=== PATIENT | female | born 1985 | race African-American/Black ===

== ENCOUNTER 2018-01-06 20:33 | Emergency (ER) | payer SELFPAY ==
[~2018-01-06] VITALS: Ht 152.4 cm; Wt 83.9 kg
[~2018-01-06 20:33] MED LIST: ACET1TAB43 PO; ACHYD1T PO; CEPH500C PO; DEPOPROVERA IM; DOCU100C37 PO; FERR325T18 PO; IBP800T PO; IBUP-1773 PO; NITR-65 PO; PREN1TAB71 PO
--- OUTSIDE RECORDS SUMMARY | 2018-01-06 20:39 | XMS REPORT ---
Author BENEDICT Virk [facility] eClinicalWorks Address Unknown Phone Unavailable Care Team Providers Care Button Reclaimer Name Role Phone BENEDICT GU CP Unavailable Allergies, Adverse Reactions, Alerts Substance Reaction Event Type N.K.D.A. Info Not Available Non Drug Allergy Problems Problem Type Condition Code Onset Dates Condition Status Problem Depressive disorder, not elsewhere classified F32.9 Active Medications Medication Code System Code Instructions Start Date End Date Status Dosage [facility] [address] 28-0.8 MG Orally not defined Results No Known Results Summary Purpose eClinicalWorks Submission
--- OUTSIDE RECORDS SUMMARY | 2018-01-06 20:40 | XMS REPORT ---
Author Author MARSHA CHILEL [facility] Address [address] [place] [address] Care Team Providers Care Grinder Gear Name Role Phone MARSHA CHILEL Unavailable PROBLEMS Type Condition ICD9-CM Code [id number] Code Onset Dates Condition Status SNOMED Code Problem Depressive disorder, not elsewhere classified F32.9 Active 66000742 ALLERGIES Unknown Allergies SOCIAL HISTORY No smoking Hx information available PLAN OF CARE VITAL SIGNS MEDICATIONS Medication Instructions Dosage Frequency Start Date End Date Duration Status Lortab 5-325 MG Orally every 6 hrs 1 tablet as needed 6h 30 Jul, 2016 Active RESULTS No Results PROCEDURES No Known procedures IMMUNIZATIONS No Known Immunizations
--- OUTSIDE RECORDS SUMMARY | 2018-01-06 20:40 | XMS REPORT ---
Author Author MARSHA CHILEL [facility] eClinicalWorks Address Unknown Phone Unavailable Care Team Providers Care Yarding Supervisor Name Role Phone MARSHA CHILEL CP Unavailable Allergies, Adverse Reactions, Alerts Substance Reaction Event Type N.K.D.A. Info Not Available Non Drug Allergy Problems Problem Type Condition Code Onset Dates Condition Status Assessment Third trimester at less than 36 weeks Z33.1 Active Problem Depressive disorder, not elsewhere classified F32.9 Active Medications Medication Code System Code Instructions Start Date End Date Status Dosage [facility] [address] 28-0.8 MG Orally Once a day 1 tablet Procedures Procedure Coding System Code Date [facility] CPT-4 NOBLL Aug 14, 2016 Office Visit, Est Pt., Level 3 CPT-4 96549 Aug 14, 2016 URINE-NO MICRO CPT-4 42077 Aug 14, 2016 Vital Signs Date/Time: Aug 14, 2016 Cardiac Monitoring Heart Rate 80 bpm Weight 166 lbs Height 60 in BMI 32.42 Index Blood Pressure Diastolic 64 mmHg Blood Pressure Systolic 110 mmHg Results Name Result Date Reference Range Unit Abnormality Flag CULTURE, GROUP B STREP (VAGINAL) ----Strep Gp B Culture Positive [id number] Negative A Summary Purpose eClinicalWorks Submission
--- OUTSIDE RECORDS SUMMARY | 2018-01-06 20:40 | XMS REPORT ---
Author Author MARSHA CHILEL [facility] eClinicalWorks Address Unknown Phone Unavailable Care Team Providers Care Industrial Economist Name Role Phone MARSHA CHILEL CP Unavailable Allergies, Adverse Reactions, Alerts Substance Reaction Event Type N.K.D.A. Info Not Available Non Drug Allergy Problems Problem Type Condition Code Onset Dates Condition Status Assessment Normal in multigravida Z34.80 Active Problem Depressive disorder, not elsewhere classified F32.9 Active Medications Medication Code System Code Instructions Start Date End Date Status Dosage [facility] [address]15 28-0.8 MG Orally not defined Vol-Plus [facility] [address]-44 27-1 MG Orally once a day May 01, 2016 1 tablet Procedures Procedure Coding System Code Date DRUG SCREEN NON TLC DEVICES CPT-4 31307 May 01, 2016 Office Visit, Est Pt., Level 4 CPT-4 42913 May 01, 2016 LAB NOT BILLED BY [facility] CPT-4 NOBLL May 01, 2016 VENIPUNCT, ROUTINE* CPT-4 66237 May 01, 2016 NIRMAL VAG, DNA, DIR PROBE CPT-4 82032 May 01, 2016 URINALYSIS, AUTO, W/O SCOPE CPT-4 73871 May 01, 2016 Vital Signs Date/Time: May 01, 2016 Cardiac Monitoring Heart Rate 76 bpm Weight 158.0 lbs Height 60 in BMI 30.857 Index Blood Pressure Diastolic 76 mmHg Blood Pressure Systolic 126 mmHg Results No Known Results Summary Purpose eClinicalWorks Submission
--- OUTSIDE RECORDS SUMMARY | 2018-01-06 20:40 | XMS REPORT ---
Author Author MARSHA CHILEL [facility] eClinicalWorks Address Unknown Phone Unavailable Care Team Providers Care Crew Boat Operator Name Role Phone MARSHA CHILEL Unavailable Allergies No Known Allergies Problems Problem Type Condition Code Onset Dates Condition Status Problem Depressive disorder, not elsewhere classified F32.9 Active Medications No Known Medications Results No Known Results Summary Purpose eClinicalWorks Submission
--- OUTSIDE RECORDS SUMMARY | 2018-01-06 20:40 | XMS REPORT ---
Author Author MARSHA CHILEL [facility] Address [address] [place] [address] Care Team Providers Care Mine Equipment Design Engineer Name Role Phone MARSHA CHILEL Unavailable PROBLEMS Type Condition ICD9-CM Code [id number] Code Onset Dates Condition Status SNOMED Code Problem Depressive disorder, not elsewhere classified F32.9 Active [id number] Assessment Third trimester Z33.1 Jul, Active [id number] ALLERGIES Unknown Allergies SOCIAL HISTORY No smoking Hx information available PLAN OF CARE VITAL SIGNS Height 60 in 2016-08-21 Weight 174 lbs 2016-08-21 Heart Rate 80 bpm 2016-08-21 Respiratory Rate 18 2016-08-21 BMI 33.982 kg/m2 2016-08-21 Blood pressure systolic 110 mmHg 2016-08-21 Blood pressure diastolic 80 mmHg 2016-08-21 MEDICATIONS Unknown Medications RESULTS No Results PROCEDURES Procedure Date Ordered Related Diagnosis Body Site URINE-NO MICRO Aug 21, 2016 Office Visit, Est Pt., Level 3 Aug 21, 2016 IMMUNIZATIONS No Known Immunizations
--- OUTSIDE RECORDS SUMMARY | 2018-01-06 20:40 | XMS REPORT ---
Author BENEDICT Virk [facility] eClinicalWorks Address Unknown Phone Unavailable Care Team Providers Care Leaf Tinner Name Role Phone BENEDICT GU CP Unavailable Allergies No Known Allergies Problems Problem Type Condition Code Onset Dates Condition Status Assessment test positive Z32.01 Active Problem Depressive disorder, not elsewhere classified F32.9 Active Medications No Known Medications Procedures Procedure Coding System Code Date URINE TEST CPT-4 62114 April 08, 2016 Results No Known Results Summary Purpose eClinicalWorks Submission
--- OUTSIDE RECORDS SUMMARY | 2018-01-06 20:40 | XMS REPORT ---
Author Author MARSHA CHILEL [facility] eClinicalWorks Address Unknown Phone Unavailable Care Team Providers Care Ekg Tech Name Role Phone MARSHA CHILEL CP Unavailable Allergies, Adverse Reactions, Alerts Substance Reaction Event Type N.K.D.A. Info Not Available Non Drug Allergy Problems Problem Type Condition Code Onset Dates Condition Status Assessment 30 weeks gestation of Z3A.30 Active Assessment Encounter for immunization Z23 Active Problem Depressive disorder, not elsewhere classified F32.9 Active Assessment Abnormal glucose tolerance test (GTT) R73.02 Active Medications Medication Code System Code Instructions Start Date End Date Status Dosage [facility] [address]32 28-0.8 MG Orally not defined Procedures Procedure Coding System Code Date Office Visit, Est Pt., Level 3 CPT-4 82187 Jul 10, 2016 [facility] NOBLL Jul 10, 2016 URINE-NO MICRO CPT-4 23275 Jul 10, 2016 TDAP (BOOSTRIX) CPT-4 12849 Jul 10, 2016 FLUARIX QUAD P-FREE 3 AND UP .50 2015 CPT-4 52524 Jul 10, 2016 IMMUNIZATION ADMIN, EACH ADD (please include units) CPT-4 42444 Jul 10, 2016 SINGLE IMMUNIZATION ADMIN CPT-4 29573 Jul 10, 2016 Vital Signs Date/Time: Jul 10, 2016 Cardiac Monitoring Heart Rate 72 bpm Weight 168.8 lbs Height 60 in BMI 32.966 Index Blood Pressure Diastolic 76 mmHg Blood Pressure Systolic 120 mmHg Results Name Result Date Reference Range Unit Abnormality Flag UA OB DIP (IN HOUSE) ----Glucose Negative [id number] ----Protein trace 20160710 Immunizations Vaccine Administration Date FLUARIX QUAD P-FREE 3 AND UP .50 2015Jul 10, 2016 TDAP (BOOSTRIX) Jul 10, 2016 Summary Purpose eClinicalWorks Submission
--- OUTSIDE RECORDS SUMMARY | 2018-01-06 20:40 | XMS REPORT ---
Author Author MARSHA CHILEL [facility] eClinicalWorks Address Unknown Phone Unavailable Care Team Providers Care Metal Organ Pipe Maker Name Role Phone MARSHA CHILEL CP Unavailable Allergies, Adverse Reactions, Alerts Substance Reaction Event Type N.K.D.A. Info Not Available Non Drug Allergy Problems Problem Type Condition Code Onset Dates Condition Status Assessment Third trimester at less than 36 weeks Z33.1 Active Problem Depressive disorder, not elsewhere classified F32.9 Active Medications Medication Code System Code Instructions Start Date End Date Status Dosage [facility] [address]77 28-0.8 MG Orally not defined Procedures Procedure Coding System Code Date Office Visit, Est Pt., Level 3 CPT-4 80045 Jul 24, 2016 URINE-NO MICRO CPT-4 12484 Jul 24, 2016 Vital Signs Date/Time: Jul 24, 2016 Cardiac Monitoring Heart Rate 80 bpm Weight 169 lbs Height 60 in BMI 33.006 Index Blood Pressure Diastolic 62 mmHg Blood Pressure Systolic 112 mmHg Results Name Result Date Reference Range Unit Abnormality Flag UA OB DIP (IN HOUSE) ----Glucose Negative [id number] ----Protein Negative [id number] Summary Purpose eClinicalWorks Submission
--- OUTSIDE RECORDS SUMMARY | 2018-01-06 20:41 | XMS REPORT ---
Author JEOVANY Torres Organization eClinicalWorks Address Unknown Phone Unavailable Care Team Providers Care Quality Lab Technician Name Role Phone JEOVANY GARRETT CP Unavailable Allergies No Known Allergies Problems Problem Type Condition Code Onset Dates Condition Status Problem Supervision of other normal V22.1 Active Assessment Depressive disorder, not elsewhere classified F32.9 Active Problem Depressive disorder, not elsewhere classified F32.9 Active Medications No Known Medications Procedures Procedure Coding System Code Date Psych diagnostic evaluation, established patient CPT-4 84987 Oct 25, 2015 Results No Known Results Summary Purpose eClinicalWorks Submission
--- OUTSIDE RECORDS SUMMARY | 2018-01-06 20:41 | XMS REPORT ---
Author Author MARSHA CHILEL [facility] eClinicalWorks Address Unknown Phone Unavailable Care Team Providers Care Social Sciences Department Chair Name Role Phone MARSHA CHILEL Unavailable Allergies No Known Allergies Problems Problem Type Condition Code Onset Dates Condition Status Assessment Third trimester at less than 36 weeks Z33.1 Active Assessment Rh negative status during , third trimester O09.893 Active Problem Depressive disorder, not elsewhere classified F32.9 Active Medications Medication Code System Code Instructions Start Date End Date Status Dosage [facility] [address]18 28-0.8 MG Orally not defined Procedures Procedure Coding System Code Date Office Visit, Est Pt., Level 3 CPT-4 68018 Jun 26, 2016 LAB NOT BILLED BY [facility] CPT-4 NOBLL Jun 26, 2016 URINE-NO MICRO CPT-4 52076 Jun 26, 2016 RH IG, FULL-DOSE, IM CPT-4 45979 Jun 26, 2016 VENIPUNCT, ROUTINE* CPT-4 30967 Jun 26, 2016 THER/PROPH/DIAG INJ, SC/IM CPT-4 62438 Jun 26, 2016 Vital Signs Date/Time: Jun 26, 2016 Cardiac Monitoring Heart Rate 76 bpm Weight 165.5 lbs Height 60 in BMI 32.322 Index Blood Pressure Diastolic 78 mmHg Blood Pressure Systolic 124 mmHg Results Name Result Date Reference Range Unit Abnormality Flag CBC ----Lymphs 21 [id number] % ----Neutrophils 71 20160626 % ----Baso (Absolute) 0.0 20160626 0.0-0.2 x10E3/uL ----Hemoglobin 12.3 20160626 11.1-15.9 g/dL ----Eos (Absolute) 0.1 [id number] 0.0-0.4 x10E3/uL ----Hematocrit 36.0 20160626 34.0-46.6 % ----Monocytes(Absolute) 0.4 20160626 0.1-0.9 x10E3/uL ----MCV 89 20160626 79-97 fL ----Lymphs (Absolute) 1.5 [id number] 0.7-3.1 x10E3/uL ----MCH 30.4 31892198 26.6-33.0 pg ----Neutrophils (Absolute) 5.3 [id number] 1.4-7.0 x10E3/uL ----MCHC 34.2 84778392 31.5-35.7 g/dL ----Immature Granulocytes 0 20160626 % ----Basos 0 23690913 % ----RDW 13.4 [id number] 12.3-15.4 % ----Immature Grans (Abs) 0.0 [id number] 0.0-0.1 x10E3/uL ----WBC 7.4 95079285 3.4-10.8 x10E3/uL ----Platelets 150 [id number] 150-379 x10E3/uL ----Eos 2 20160626 % ----RBC 4.04 40175469 3.77-5.28 x10E6/uL ----Monocytes 6 13016581 % ANTIBODY SCREEN ----Antibody Screen Negative 20160626 Negative ROUTINE VENIPUNCTURE GLUCOSE DEDE 1 HOUR ----Gestational Diabetes Screen 149 20160626 65-139 mg/dL H UA OB DIP (IN HOUSE) ----Protein Negative 20160626 ----Glucose Negative 20160626 Summary Purpose eClinicalWorks Submission
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
--- NOTE | 2018-01-06 20:55 | ED Cough/URI ---
General Chief Complaint: Cough/Cold/Flu Symptoms Stated Complaint: FEVER;CHILLS Nursing Triage Note: Patient reports runny nose with chills and generalized aches and pain since Source: patient Exam Limitations: no limitations History of Present Illness Date Seen by Provider: Jan 06, 2018 Time Seen by Provider: 20:54 Initial Comments To ER with reports of a four-day history of rhinorrhea, chills, general body aches, productive cough. She has not taken any medication at home because she does not like taking medication. Timing/Duration: constant Severity/Quality: productive cough Associated Symptoms: cough Allergies and Home Medications Allergies Coded Allergies: No Known Drug Allergies (Verified , 12/23/07) Home Medications D-Methorphan Hb/P-Epd HCl/Bpm 118 Ml Syrup, 5 ML PO Q4H PRN for COUGH Prescribed by: SHIRIN PORTER on 01/06/182140 Patient Home Medication List Home Medication List Reviewed: Yes Review of Systems Constitutional: see HPI, chills, malaise, weakness EENTM: see HPI Respiratory: see HPI, cough Cardiovascular: no symptoms reported Genitourinary: no symptoms reported Musculoskeletal: no symptoms reported Skin: no symptoms reported Past Omivikh-Isvnjs-Qbrqbi Hx Patient Social History Alcohol Use: Denies Use Recreational Drug Use: No Smoking Status: Current Everyday Smoker Type Used: Cigarettes Recent Foreign Travel: No Contact w/Someone Who Travel: No Recent Infectious Disease Expo: No Recent Hopitalizations: No Physical Abuse: No Sexual Abuse: No Immunizations Up To Date Tetanus Booster (TDap): Unknown PED Vaccines UTD: No Date of Influenza Vaccine: Jul 10, 2016 Seasonal Allergies Seasonal Allergies: No Past Medical History Surgeries: Yes (D&C) Respiratory: No Cardiac: No Neurological: No Reproductive Disorders: No Female Reproductive Disorders: Denies Sexually Transmitted Disease: No HIV/AIDS: No Gastrointestinal: No Musculoskeletal: No Endocrine: No Cancer: No Psychosocial: No Nursing Suicide Risk Score: 0 Integumentary: Yes Eczema Blood Disorders: No Adverse Reaction/Blood Tranf: No Family Medical History Diabetes mellitus 19 MOTHER (will not take medicine) FH: of unknown cause 19 FATHER, Onset:22 FH: stomach ulcer G8 BROTHER Physical Exam Vital Signs Vital Signs - First Documented 01/06/18 20:42 Temp 99.4 Pulse 88 Resp 18 B/P (MAP) 139/92 (108) Pulse Ox 99 Capillary Refill : Less Than 3 Seconds General Appearance: WD/WN, no apparent distress Eyes: Bilateral Eye Normal Inspection, Bilateral Eye PERRL, Bilateral Eye EOMI HEENT: PERRL/EOMI, normal ENT inspection, other (rhinorrhea) Neck: non-tender, full range of motion Respiratory: normal breath sounds, no respiratory distress, no accessory muscle use Gastrointestinal: normal bowel sounds, non tender, soft Neurologic/Psychiatric: alert, normal mood/affect, oriented x 3 Skin: normal color, warm/dry Progress/Results/Core Measures Suspected Sepsis Recent Fever Within 48 Hours: No Infection Criteria Present: None New/Unexplained Altered Menta: No Sepsis Screen: No Definite Risk Sepsis Diagnosis: SIRS Temperature:99.4 Pulse: 88 Respiratory Rate: 18 Blood Pressure 139 /92 Mean: 108 Results/Orders Micro Results Microbiology 01/06/18 Influenza Types A,B Antigen (EMMA) - Final, Complete My Orders Orders - SHIRIN PORTER APRN Influenza A And B Antigens (01/06/18 20:50) Chest Pa/Lat (2 View) (01/06/18 20:50) Vital Signs/I&O 01/06/18 20:42 Temp 99.4 Pulse 88 Resp 18 B/P (MAP) 139/92 (108) Pulse Ox 99 Capillary Refill : Less Than 3 Seconds Blood Pressure Mean: 108 Departure Impression Primary Impression: Bronchitis Disposition: 01 HOME, SELF-CARE Condition: Stable Departure-Patient Inst. Decision time for Depature: 21:40 Referrals: RACHAEL RUIZ DO (PCP/Family) Primary Care Physician Patient Instructions: Cough, Adult (DC), VIRAL SYNDROME Add. Discharge Instructions: 1. Return to ER for any concerns 2. Medication as directed 3. All discharge instructions reviewed with patient and/or family. Voiced understanding. Scripts D-Methorphan Hb/P-Epd HCl/Bpm (Bromfed Dm Cough Syrup) 118 Ml Syrup 5 ML PO Q4H Y for COUGH, #120 ML Prov: SHIRIN PORTER APRN 01/06/18 Work/School Note: Work Release Form Date Seen in the Emergency Department: Jan 06, 2018 Return to Work: Jan 08, 2018 SHIRIN PORTER APRN Jan 06, 2018 20:55
--- NOTE | 2018-01-06 21:25 | Diagnostic Imaging Report ---
EXAMINATION: PA and lateral chest at 0926 PM INDICATION: Productive cough The heart size is within normal limits and stable when compared to 03/23/2008. The lungs are clear. There is no sign of failure, pneumonia or a pleural effusion. The mediastinum is not widened. The osseous structures are intact. IMPRESSION: There is no evidence for an acute cardiopulmonary abnormality. Dictated by: Dictated on workstation # [id number]
[2018-01-06] MEDS ORDERED: D-ME118S33 PO (21:41)
[2018-01-06 21:47] VITALS: BP 139/92
== END 2018-01-06 21:47 | disposition home or self-care (01) ==
LOC: EDUNIT# 20:33 → ER 20:35
DX: J40 Bronchitis, not specified as acute or chronic (principal); F17.210 Nicotine dependence, cigarettes, uncomplicated; Z87.19 Personal history of other diseases of the digestive system
CPT/HCPCS: 71046; 87804; 99282

== ENCOUNTER 2019-01-07 22:13 | Emergency (ER) | payer SELFPAY ==
[~2019-01-07] VITALS: Ht 152.4 cm; Wt 81.2 kg
[~2019-01-07 22:13] MED LIST changes: +D-ME118S33 PO
--- OUTSIDE RECORDS SUMMARY | 2019-01-07 22:19 | XMS REPORT ---
Author Author JAMEE Stubbs [facility] Address [address] [place] [address] Care Team Providers Care Linen Sorter Name Role Phone ireneDoCAROLYNE JAMEE Unavailable PROBLEMS Type Condition ICD9-CM Code SDB99-TI Code Onset Dates Condition Status SNOMED Code Problem Severe episode of recurrent major depressive disorder, without psychotic features F33.2 Active 14118193 Problem Depressive disorder, not elsewhere classified F32.9 Active [id number] ALLERGIES No Known Allergies ENCOUNTERS Encounter Location Date Diagnosis [place] [id number] [address] Feb, [place] [address] [address] January, [facility] [address] [address] January, [facility] [address] [address] January, Severe episode of recurrent major depressive disorder, without psychotic features F33.2 [place] [address] [address] January, [facility] [address] [place] [id number] [place] [address] Jun, Non-intractable vomiting with nausea, unspecified vomiting type R11.2 and Viral gastroenteritis A08.4 [facility] [address] [address] Dec, [facility] [address] [place] [id number] [place] [address] Dec, Generalized abdominal pain R10.84 and Acute cystitis with hematuria N30.01 [facility] [address] [address] Sep, [facility] [address] [place] [id number] [place] [address] Aug, Normal in multigravida Z34.80 [facility] [address] [place] [id number] [place] [address]- [address] Jul, [facility] [address] [place] [id number] [place] [address]- 5652 Jul, Third trimester Z33.1 [place] [address] [place] [id number] [place] [address]- 7634 Jul, Third trimester at less than 36 weeks Z33.1 [place] [address] [place] [id number] [place] [address]- 1705 Jun, Third trimester at less than 36 weeks Z33.1 [place] [address] [place] [id number] [place] [address]- [address] Jun, [place] [address] [place] [id number] [place] [address]- 6[address] Jun, 30 weeks gestation of Z3A.30 ; Encounter for immunization Z23 and Abnormal glucose tolerance test (GTT) R73.02 [place] [id number] [place] [address]- 8689 May, Third trimester at less than 36 weeks Z33.1 and Rh negative status during , third trimester O09.893 [place] [address] [address] May, 25 weeks gestation of Z3A.25 [place] [address] [place] [id number] [place] [address]- [address] May, [facility] [address] [address] Apr, Normal in multigravida Z34.80 [facility] [address] [address] Mar, [facility] [address] [place] [id number] [place] [address]- 1798 Mar, test positive Z32.01 [facility] [address] [address] Nov, Urinary frequency R35.0 ; Oral contraceptive pill surveillance Z30.41 ; Routine screening for STI (sexually transmitted infection ) Z11.3 ; Irregular menses N92.6 ; Urinary tract infection, site not specified N39.0 and Screening for malignant neoplasm of cervix Z12.4 [place] [address] [place] [id number] [place] [address]- 99[address] Sep, Depressive disorder, not elsewhere classified F32.9 [facility] [address] [place] [address]- 89[address] Apr, [facility] [address] [place] [address]- 9[address] Apr, Supervision of other normal V22.1 and test positive V72.42 [place] [address] [place] [address]26- 8119 Apr, Supervision of other normal V22.1 [facility] [address] [address] Mar, [facility] [address] [place] [id number] [place] [address]- [address] January, test positive V72.42 [facility] [address] [address] Dec, [facility] [address] [address] Dec, [facility] [address] [address] Jul, [facility] [place] [facility] [address] [id number] [place] [address] Jul, [facility] [place] [facility] [address] [id number] [place] [address] 8525 Jul, [facility] [place] [facility] [address] [id number] [place] [address]- 8596 Jul, [facility] [place] [facility] [address] [id number] [place] [address]- 9889 Jul, [facility] [place] [facility] [address] [id number] [place] [address]- [address] Jul, [facility] [place] [facility] [address] [id number] [place] [address]- 99[address] Jul, [facility] [place] [facility] [address] [id number] [place] [address]- [address] Jul, [facility] [place] [facility] [address] [id number] [place] [address] 4309 Jul, [facility] [place] [facility] [address] [id number] [place] [address]- 2780 Jul, [facility] [place] [facility] [address] [id number] [place] [address]- 3604 Apr, [facility] [place] [facility] [address] [id number] [place] [address]- 3009 Apr, [facility] [place] [facility] [address] [id number] [place] [address]- 7379 Jul, [facility] [place] [facility] [address] [id number] [place] [address]- 3107 Jul, [facility] [place] [facility] [address] [id number] [place] [address]- 7268 Jul, [facility] [place] [facility] [address] [id number] [place] [address]- 9696 Jul, [facility] [place] [facility] [address] [id number] [address] Jul, [facility] [address] [facility] [id number] [address] Jul, [facility] [address] [facility] [id number] [place] [address] Jul, [facility] [address] [address] Jul, [facility] [address] [facility] [id number] [place] [address]- [address] Jul, [facility] [address] [facility] [id number] [place] [address] Jul, [facility] [address] [place] [id number] [address] Jun, [facility] [address] [address] Jun, [facility] [address] [address] Jun, [facility] [address] [address] Jun, [facility] [address] Aug, [facility] [address] [place] [id number] [address] Aug, [facility] [address] [place] [id number] Aug, [facility] [address] [place] [id number] Apr, IMMUNIZATIONS No Known Immunizations SOCIAL HISTORY Never Assessed REASON FOR VISIT nausea x 2 days, stomach cramps and temp as high as 100.0, pt is sticking to full liquid diet [facility] PLAN OF CARE Activity Details Follow Up prn Reason: VITAL SIGNS Height 60 in 2017-07-17 Weight 171 lbs 2017-07-17 Temperature 98.0 degrees Fahrenheit 2017-07-17 Heart Rate 84 bpm 2017-07-17 Respiratory Rate 16 2017-07-17 BMI 33.39 kg/m2 2017-07-17 Blood pressure systolic 122 mmHg 2017-07-17 Blood pressure diastolic 62 mmHg 2017-07-17 MEDICATIONS Medication Instructions Dosage Frequency Start Date End Date Duration Status Tylenol Active Zofran ODT 4 MG Orally every 8 hrs 1 tablet on the tongue and allow to dissolve 8h Jun, 05 days Active RESULTS Name Result Date Reference Range TEST, URINE (IN HOUSE) 2017-07-17 RESULTS negative Lot # [id number] Control + Exp date 2018 UA W/CULTURE IF INDICATED (IN HOUSE) 2017-07-17 Lot # [id number] Exp date 07 29 2018 Clarity clear Color ornge Odor none GLU negative JENNIFER negative KET negative SG 1.025 BLO trace pH 5.5 Protein negative URO 0.2 NIT negative ANIBAL 1+ Lot # [id number] Exp date december 2017 PROCEDURES Procedure Date Ordered Result Body Site URINALYSIS, AUTO, W/O SCOPE Jul 17, 2017 URINE TEST Jul 17, 2017 INSTRUCTIONS MEDICATIONS ADMINISTERED No Known Medications MEDICAL (GENERAL) HISTORY Type Description Date Medical History History of Rhogam Injection Surgical History D&C 2010 Hospitalization History Childbirth x 5
--- OUTSIDE RECORDS SUMMARY | 2019-01-07 22:19 | XMS REPORT ---
Author Author Migration, Doctor Organization [facility] Address Unknown Phone Unavailable Care Team Providers Care Modeling Manager Name Role Phone Migration, Doctor Unavailable Unavailable PROBLEMS Type Condition ICD9-CM Code FDI88-CR Code Onset Dates Condition Status SNOMED Code Problem Depressive disorder, not elsewhere classified F32.9 Active 54964701 Problem Severe episode of recurrent major depressive disorder, without psychotic features F33.2 Active 93808130 ALLERGIES No Information ENCOUNTERS Encounter Location Date Diagnosis [address] [address] January, Severe episode of recurrent major depressive disorder, without psychotic features F33.[address] [address] January, [facility] [place] [address] [address] Jun, Non-intractable vomiting with nausea, unspecified vomiting type R11.2 and Viral gastroenteritis A08.4 [place] [address] [address] Dec, [facility] [place] [address] [address] Dec, Generalized abdominal pain R10.84 and Acute cystitis with hematuria N30.01 [place] [address] [address] Sep, [address] [address] Aug, Normal in multigravida Z34.80 [place] [address] [address] Jul, [address] [address] Jul, Third trimester Z33.1 [place] [address] [place] [address] Jul, Third trimester at less than 36 weeks Z33.1 [place] [address] [address] Jun, Third trimester at less than 36 weeks Z33.1 [place] [address] [place] [id number] [place] [address] Jun, [place] [address] [place] [id number] [place] [address] Jun, 30 weeks gestation of Z3A.30 ; Encounter for immunization Z23 and Abnormal glucose tolerance test (GTT) R73.02 [place] [address] [place] [address]- [address]1 May, Third trimester at less than 36 weeks Z33.1 and Rh negative status during , third trimester O09.893 [place] [address] [place] [address]- [address] May, 25 weeks gestation of Z3A.25 [place] [address] [place] [address]- [address] May, [place] [address] [address]- [address] Apr, Normal in multigravida Z34.80 [place] [address], [place] [address]- [address] Mar, [place] [address] [place] [id number] [place] [address] Mar, test positive Z32.01 [place] [address], [place] [address]- [address] Nov, Urinary frequency R35.0 ; Oral contraceptive pill surveillance Z30.41 ; Routine screening for STI (sexually transmitted infection ) Z11.3 ; Irregular menses N92.6 ; Urinary tract infection, site not specified N39.0 and Screening for malignant neoplasm of cervix Z12.4 [facility] [address] [place] [id number] [place] [address]- [address] Sep, Depressive disorder, not elsewhere classified F32.9 [facility] [address] [place] [id number] [place] [address]- 1155 Apr, [facility] [address] [place] [id number] [place] [address]66- 5278 Apr, Supervision of other normal V22.1 and test positive V72.42 [facility] [address] [place] [id number] [place] [address]- 3350 Apr, Supervision of other normal V22.1 [facility] [address] [place] [id number] [place] [address]- 8510 Mar, [facility] [address] [place] [id number] [place] [address]- 6258 January, test positive V72.42 [facility] [address] [place] [id number] [place] [address] 84[address]- 3704 Dec, [facility] [address] [place] [id number] [address]- [address] Dec, [facility] [address], [place] [address]- 6[address] Jul, [facility] [address], [place] [address]- 2068 Jul, [facility] [address] [place] [id number] [place] [address]- 3874 Jul, [facility] [address] [place] [id number] [address]- [address] Jul, [facility] [address], [place] [address]- 284[address] Jul, [facility] [place] [facility] [address] [id number] [place] [address]- 8668 Jul, [facility] [place] [facility] [address] [id number] [place] [address]- 5609 Jul, [facility] [place] [facility] [address] [id number] [place] [address]- 0369 Jul, [facility] [place] [facility] [address] [id number] [place] [address]- 7594 Jul, [facility] [place] [facility] [address] [id number] [place] [address]- 6777 Jul, [facility] [place] [facility] [address] [id number] [place] [address]- 3233 Apr, [facility] [place] [facility] [address] [id number] [place] [address]- 7520 Apr, [facility] [place] [facility] [address] [id number] [place] [address]- 1169 Jul, [facility] [place] [facility] [address] [id number] [place] [address]- 0852 Jul, [facility] [place] [facility] [address] [id number] [place] [address]- 1981 Jul, [facility] [place] [facility] [address] [id number] [place] [address]- 9879 Jul, [facility] [place] [facility] [address] [id number] [place] [address]- 0594 Jul, [facility] [place] [facility] [address] [id number] [place] [address]- 2026 Jul, [facility] [place] [facility] [address] [id number] [place] [address]- 3868 Jul, [facility] [place] [facility] [address] [id number] [place] [address]- 8914 Jul, [facility] [place] [facility] [address] [id number] [place] [address]- 4748 Jul, [facility] [address] [place] [id number] [address]- [address] Jul, [facility] [address], [place] [address]- 6426 Jun, [facility] [address], [place] [address]- 8[address] Jun, [facility] [address], [place] [address]- 4709 Jun, [facility] [address], [place] [address]- 9762 Jun, [facility] [address] [place] [address] 6[address]- 1178 Aug, [facility] [address], [place] [address]- 0853 Aug, [facility] [address], [place] [address]- 12[address] Aug, [facility] [address] [place] [id number] [address]- 3[address] Apr, IMMUNIZATIONS No Known Immunizations SOCIAL HISTORY Never Assessed REASON FOR VISIT EMR-[facility] PLAN OF CARE VITAL SIGNS MEDICATIONS Medication Instructions Dosage Frequency Start Date End Date Duration Status Ortho-Cyclen (28) 0.25-35 mg-mcg take 1 tablet by oral route once daily Jul, Active Flagyl 500 mg 1 tablet by Oral route 2 times per day for 7 days Jul Active RESULTS No Results PROCEDURES No Known procedures INSTRUCTIONS MEDICATIONS ADMINISTERED No Known Medications MEDICAL (GENERAL) HISTORY Type Description Date Medical History History of Rhogam Injection Surgical History D&C 2010 Hospitalization History Childbirth x 5
--- OUTSIDE RECORDS SUMMARY | 2019-01-07 22:19 | XMS REPORT ---
Author Author JEOVANY GARRETT Organization [facility] Address [address] [place] [address] Care Team Providers Care Tub Chucker Name Role Phone JEOVANY GARRETT Unavailable PROBLEMS Type Condition ICD9-CM Code TIG30-BD Code Onset Dates Condition Status SNOMED Code Problem Severe episode of recurrent major depressive disorder, without psychotic features F33.2 Active 51079091 Problem Depressive disorder, not elsewhere classified F32.9 Active [id number] ALLERGIES No Information ENCOUNTERS Encounter Location Date Diagnosis [address] [address] January, Severe episode of recurrent major depressive disorder, without psychotic features F33.[address] [address] January, [facility] IN [address] [address] Jun, Non-intractable vomiting with nausea, unspecified vomiting type R11.2 and Viral gastroenteritis A08.[address] [address] Dec, [facility]ALK IN [facility] [address] [address] Dec, Generalized abdominal pain R10.84 and Acute cystitis with hematuria N30.[address] [address] Sep, [address] [address] Aug, Normal in multigravida Z34.[address] [address] Jul, [facility] [id number] [place] [address]32- 5632 Jul, Third trimester Z33.1 [facility] [address] [address] [id number] [place] [address] 94934- 7642 Jul, Third trimester at less than 36 weeks Z33.1 [facility] [id number] [place] [address] 04852- 5517 Jun, Third trimester at less than 36 weeks Z33.1 [facility] [id number] [place] [address] 98315- 6958 Jun, [place] [address] [address] Jun, Encounter for immunization Z23 ; 30 weeks gestation of Z3A.30 and Abnormal glucose tolerance test (GTT) R73.02 [place] [id number] [place] [address] 60086- 9841 May, Third trimester at less than 36 weeks Z33.1 and Rh negative status during , third trimester O09.893 [place] [id number] [place] [address] 02737- 5822 May, 25 weeks gestation of Z3A.25 [place] [address] [address] [id number] [place] [address] 42505- 6758 May, [place] [address] [id number] [place] [address] 56244- 5826 Apr, Normal in multigravida Z34.80 [place] [address] [id number] [place] [address] 47783- 0043 Mar, [place] [address] [id number] [place] [address] 63155- 6442 Mar, test positive Z32.01 [place] [address] [address] [id number] [place] [address] 98381- 8340 15 Mar, 2016 Urinary frequency R35.0 ; Oral contraceptive pill surveillance Z30.41 ; Routine screening for STI (sexually transmitted infection ) Z11.3 ; Irregular menses N92.6 ; Urinary tract infection, site not specified N39.0 and Screening for malignant neoplasm of cervix Z12.4 [facility] [address] [address] 27 Sep, 2015 Depressive disorder, not elsewhere classified F32.9 [facility] [id number] [place] [address] 56097- 3061 Apr, [facility] [id number] [place] [address] 54982- 5335 Apr, Supervision of other normal V22.1 and test positive V72.42 [facility] [id number] [address] 95[address] Apr, Supervision of other normal V22.1 [facility] [id number] [place] [address] 72004- 2976 Mar, [facility] [id number] [place] [address] 96795- 2393 January, test positive V72.42 [facility] [id number] [address] 8[address] Dec, [facility] [address] [address]- 98[address] Dec, [facility] [id number] [address]- 2515 Jul, [facility] [address] [address]- 8002 Jul, [facility] [address] [id number] [place] [address] 63254- 1652 Jul, [facility] [id number], [place] [address]- 5459 Jul, [facility] [id number] [place] [address] 8669 Jul, [facility] [place] [facility] [address] [id number] [place] [address]- 0937 Jul, [facility] [place] [facility] [address] [id number] [place] [address]- 8273 Jul, [facility] [place] [facility] [address] [id number] [place] [address]- 2761 Jul, [facility] [place] [facility] [address] [id number] [place] [address]- 0493 Jul, [facility] [place] [facility] [address] [id number] [place] [address]- 2245 Jul, [facility] [place] [facility] [address] [id number] [place] [address]- 4158 Apr, [facility] [place] [facility] [address] [id number] [place] [address]- 3047 Apr, [facility] [place] [facility] [address] [id number] [place] [address]- 4256 Jul, [facility] [place] [facility] [address] [id number] [place] [address]- 5094 Jul, [facility] [place] [facility] [address] [id number] [place] [address]- 2093 Jul, [facility] [place] [facility] [address] [id number] [place] [address]- 9390 Jul, [facility] [place] [facility] [address] [id number] [place] [address]- 8501 Jul, [facility] [place] [facility] [address] [id number] [place] [address]- 4472 Jul, [facility] [place] [facility] [address] [id number] [place] [address]- 4011 Jul, [facility] [place] [facility] [address] [id number] [place] [address]- 9767 Jul, [facility] [address] [address]- 9965 Jul, [facility] [address], [place] [address]- 0166 Jul, [facility] [address], [place] [address]- 6765 Jun, [facility] [address], [place] [address]- 2546 Jun, [facility] [id number] [address]- 1994 Jun, [facility] [address] [address]- 3156 Jun, [facility] [address] [place] [address] 80443- 6729 Aug, [facility] [id number] [address]- 6703 Aug, [facility] [address], [place] [address]- 1652 Aug, [facility] [address] [place] [id number] [address]- 2069 Apr, IMMUNIZATIONS No Known Immunizations SOCIAL HISTORY Never Assessed REASON FOR VISIT BH intake, Depression. PLAN OF CARE Activity Details Follow Up next available Reason:depression VITAL SIGNS MEDICATIONS Unknown Medications RESULTS No Results PROCEDURES Procedure Date Ordered Result Body Site Psych diagnostic evaluation, established patient February 04, 2018 INSTRUCTIONS MEDICATIONS ADMINISTERED No Known Medications MEDICAL (GENERAL) HISTORY Type Description Date Medical History History of Rhogam Injection Surgical History D&C 2010 Hospitalization History Childbirth x 5
--- OUTSIDE RECORDS SUMMARY | 2019-01-07 22:19 | XMS REPORT ---
Author Author JEOVANY GARRETT Organization [facility] Address [address] [place] [address] Care Team Providers Care Equipment Analyst Name Role Phone JEOVANY GARRETT Unavailable PROBLEMS Type Condition ICD9-CM Code ASL62-RF Code Onset Dates Condition Status SNOMED Code Problem Severe episode of recurrent major depressive disorder, without psychotic features F33.2 Active 61218846 Problem Depressive disorder, not elsewhere classified F32.9 Active 45048547 ALLERGIES No Information ENCOUNTERS Encounter Location Date Diagnosis [address] [address] January, Severe episode of recurrent major depressive disorder, without psychotic features F33.[address] [address] January, [facility] IN [address] [address] Jun, Non-intractable vomiting with nausea, unspecified vomiting type R11.2 and Viral gastroenteritis A08.[address] [address]- [address] Dec, [facility] WALK IN [facility] [address] [address] Dec, Generalized abdominal pain R10.84 and Acute cystitis with hematuria N30.[address] [address]- [address]326 Sep, [address] [address] Aug, Normal in multigravida Z34.[address] [address]- 3227 Jul, [facility] [address] [place] [address] 366[address]- 9430 Jul, Third trimester Z33.1 [facility] [address] [id number] [place] [address] 45640- 4124 Jul, Third trimester at less than 36 weeks Z33.1 [facility] [address] [id number] [place] [address] 65824- 2310 Jun, Third trimester at less than 36 weeks Z33.1 [facility] [address] [place] [id number] [place] [address] 09273- 2791 Jun, [place] [address] [id number] [place] [address] 12184- 1303 Jun, 30 weeks gestation of Z3A.30 ; Encounter for immunization Z23 and Abnormal glucose tolerance test (GTT) R73.02 [place] [address] [place] [id number] [place] [address] 84509- 1171 May, Third trimester at less than 36 weeks Z33.1 and Rh negative status during , third trimester O09.893 [place] [address] [place] [address] [id number] [place] [address] 81180- 1124 May, 25 weeks gestation of Z3A.25 [place] [address] [place] [id number] [place] [address] 46581- 3115 May, [place] [address] [place] [id number] [place] [address] 42086- 3971 Apr, Normal in multigravida Z34.80 [place] [address] [place] [address] [id number] [place] [address] 68159- 4789 Mar, [place] [address] [place] [id number] [place] [address] 41288- 0594 Mar, test positive Z32.01 [place] [address] [place] [address] [id number] [place] [address] 19529- 5484 15 Mar, 2016 Urinary frequency R35.0 ; Oral contraceptive pill surveillance Z30.41 ; Routine screening for STI (sexually transmitted infection ) Z11.3 ; Irregular menses N92.6 ; Urinary tract infection, site not specified N39.0 and Screening for malignant neoplasm of cervix Z12.4 [facility] [address], [place] [address]- 65[address] 27 Sep, 2015 Depressive disorder, not elsewhere classified F32.9 [facility] [id number] [place] [address] 45483- 0043 Apr, [facility] [id number] [place] [address] 39742- 9197 Apr, Supervision of other normal V22.1 and test positive V72.42 [facility] [id number] [address]- 4132 Apr, Supervision of other normal V22.1 [facility] [id number] [place] [address] 17635- 0450 Mar, [facility] [id number] [place] [address] 39852- 4492 January, test positive V72.42 [facility] [id number] [address]- 8389 Dec, [facility] [address], [place] [address]- 7581 Dec, [facility] [address], [place] [address]- 7797 Jul, [facility] [address], [place] [address]- 9581 Jul, [facility] [address] [place] [id number] [place] [address] 43180- 1917 Jul, [facility] [address], [place] [address]- 4056 Jul, [facility] [address] [place] [id number] [place] [address]- 6505 Jul, [facility] [place] [facility] [address] [id number] [place] [address]- 9050 Jul, [facility] [place] [facility] [address] [id number] [place] [address]- 3559 Jul, [facility] [place] [facility] [address] [id number] [place] [address]- 4076 Jul, [facility] [place] [facility] [address] [id number] [place] [address]- 0607 Jul, [facility] [place] [facility] [address] [id number] [place] [address]- 2895 Jul, [facility] [place] [facility] [address] [id number] [place] [address]- 4145 Apr, [facility] [place] [facility] [address] [id number] [place] [address]- 1199 Apr, [facility] [place] [facility] [address] [id number] [place] [address]- 5888 Jul, [facility] [place] [facility] [address] [id number] [place] [address]- 6224 Jul, [facility] [place] [facility] [address] [id number] [place] [address]- 3118 Jul, [facility] [place] [facility] [address] [id number] [place] [address]- 3445 Jul, [facility] [place] [facility] [address] [id number] [place] [address]- 4931 Jul, [facility] [place] [facility] [address] [id number] [place] [address]- 5503 Jul, [facility] [place] [facility] [address] [id number] [place] [address]- 1393 Jul, [facility] [place] [facility] [address] [id number] [place] [address]- 0451 Jul, [facility] [address] [facility] [id number] [address]- 8890 Jul, [facility] [address], [place] [address]- 8196 Jul, [facility] [address], [place] [address]- 2240 Jun, [facility] [address], [place] [address]- 4563 Jun, [facility] [address], [place] [address]- 6514 Jun, [facility] [address], [place] [address]- 1931 Jun, [facility] [address] [place] [address] 52204- 6050 Aug, [facility] [address], [place] [address]- 5509 Aug, [facility] [address], [place] [address]- 6833 Aug, [facility] [id number], [place] [address]- 7356 Apr, IMMUNIZATIONS No Known Immunizations SOCIAL HISTORY Never Assessed REASON FOR VISIT Returned call PLAN OF CARE VITAL SIGNS MEDICATIONS Unknown Medications RESULTS No Results PROCEDURES No Known procedures INSTRUCTIONS MEDICATIONS ADMINISTERED No Known Medications MEDICAL (GENERAL) HISTORY Type Description Date Medical History History of Rhogam Injection Surgical History D&C 2010 Hospitalization History Childbirth x 5
--- OUTSIDE RECORDS SUMMARY | 2019-01-07 22:20 | XMS REPORT ---
Author Author KEIKO DELORES [facility] Address [address] [place] [address] Care Team Providers Care Canine Service Teacher Name Role Phone KEIKOEDGAR SANTOROHANY Unavailable PROBLEMS Type Condition ICD9-CM Code MKS95-SA Code Onset Dates Condition Status SNOMED Code Problem Severe episode of recurrent major depressive disorder, without psychotic features F33.2 Active 53671087 Problem Depressive disorder, not elsewhere classified F32.9 Active 77341842 ALLERGIES No Information ENCOUNTERS Encounter Location Date Diagnosis [address] [address] January, Severe episode of recurrent major depressive disorder, without psychotic features F33.2 [place] [address] [address] January, [facility] IN [address] [address] Jun, Non-intractable vomiting with nausea, unspecified vomiting type R11.2 and Viral gastroenteritis A08.4 [place] [address] 39[address]- 5584 Dec, [facility] WALK IN [facility] [address] [address] Dec, Generalized abdominal pain R10.84 and Acute cystitis with hematuria N30.01 [place] [address] 38[address]- 4749 Sep, [place] [address] [address]- 1338 Aug, Normal in multigravida Z34.[address] [address]- [address] Jul, [facility] [address] [id number] [place] [address]403- 4761 Jul, Third trimester Z33.1 [facility] [id number] [place] [address] 74354- 2718 Jul, Third trimester at less than 36 weeks Z33.1 [place] [address] 95794- 4969 Jun, Third trimester at less than [address] [facility] [id number] [place] [address] 35295- 3597 Jun, [place] [id number] [place] [address] 83364- 3257 Jun, 30 weeks gestation of Z3A.30 ; Encounter for immunization Z23 and Abnormal glucose tolerance test (GTT) R73.02 [place] [id number] [place] [address] 37136- 0929 May, Third trimester at less than 36 weeks Z33.1 and Rh negative status during , third trimester O09.893 [place] [id number] [place] [address] 81669- 6239 May, 25 weeks gestation of Z3A.25 [place] [id number] [place] [address] 56305- 7868 May, [place] [id number] [place] [address] 70717- 9650 Apr, Normal in multigravida Z34.80 [place] [id number] [place] [address] 99593- 1649 Mar, [place] [id number] [place] [address] 77991- 4666 Mar, test positive Z32.01 [place] [id number] [place] [address] 45117- 3567 15 Mar, 2016 Urinary frequency R35.0 ; Oral contraceptive pill surveillance Z30.41 ; Routine screening for STI (sexually transmitted infection ) Z11.3 ; Irregular menses N92.6 ; Urinary tract infection, site not specified N39.0 and Screening for malignant neoplasm of cervix Z12.4 [facility] [address], [place] [address]- [address] 27 Sep, 2015 Depressive disorder, not elsewhere classified F32.9 [facility] [id number] [place] [address]953- 1725 Apr, [facility] [id number] [place] [address] 55382- 9901 Apr, Supervision of other normal V22.1 and test positive V72.42 [facility] [id number], [place] [address]- 6221 Apr, Supervision of other normal V22.1 [facility] [id number] [place] [address] 11298- 7998 Mar, [facility] [id number] [place] [address] 91645- 2945 January, test positive V72.42 [facility] [address], [place] [address]- 9158 Dec, [facility] [address] [address] 5746 Dec, [facility] [address] [address] 1445 Jul, [facility] [address] [address] 1844 Jul, [facility] [address] [address] 9037 Jul, [facility] [address] [address]- 7979 Jul, [facility] [address] [place] [address] [id number] [place] [address]- 4981 07 Jul, 2014 [facility] [address] [id number] [place] [address]- 9214 Jul, [facility] [place] [facility] [address] [id number] [place] [address]- 2000 Jul, [facility] [place] [facility] [address] [id number] [place] [address]- 0565 Jul, [facility] [place] [facility] [address] [id number] [place] [address]- 3127 Jul, [facility] [place] [facility] [address] [id number] [place] [address]- 8031 Jul, [facility] [place] [facility] [address] [id number] [place] [address]- 9185 Apr, [facility] [place] [facility] [address] [id number] [place] [address]- 1749 Apr, [facility] [address] [id number] [place] [address]- 9270 Jul, [facility] [place] [facility] [address] [id number] [place] [address]- 3723 Jul, [facility] [address] [id number] [place] [address]- 7608 Jul, [facility] [place] [facility] [address] [id number] [place] [address]- 1491 Jul, [facility] [place] [facility] [address] [id number] [place] [address]- 2463 Jul, [facility] [place] [facility] [address] [id number] [place] [address]- 7352 Jul, [facility] [place] [facility] [address] [id number] [place] [address]- 6392 Jul, [facility] [place] [facility] [address] [id number] [place] [address]- 5351 Jul, [facility] [address] [address] Jul, [facility] [address] [address] 2716 Jul, [facility] [address]65[address] [address]40 Jun, [facility] [address] [address] Jun, [facility] [address] [address] 4819 Jun, [facility] [id number] [place] [address]70- 4816 Jun, [facility] [address] [address]074 Aug, [facility] [address] [address] Aug, [facility] [id number] [address] Aug, [facility] [id number], [place] [address] Apr, IMMUNIZATIONS No Known Immunizations SOCIAL HISTORY Never Assessed REASON FOR VISIT PLAN OF CARE VITAL SIGNS MEDICATIONS Unknown Medications RESULTS No Results PROCEDURES No Known procedures INSTRUCTIONS MEDICATIONS ADMINISTERED No Known Medications MEDICAL (GENERAL) HISTORY Type Description Date Medical History History of Rhogam Injection Surgical History D&C 2011 Hospitalization History Childbirth x 5
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
[2019-01-07 22:59] LABS: CLARITY,URINE SL CLOUDY; COLOR,URINE YELLOW
[2019-01-07 23:00] LABS: BACTERIA,URINE NEGATIVE /HPF; BILIRUBIN,URINE NEGATIVE (NEGATIVE); GLUCOSE, URINE (UA) NEGATIVE (NEGATIVE); KETONES,URINE NEGATIVE (NEGATIVE); LEUKOCYTE ESTERASE ,URINE 2+ (NEGATIVE); NITRITE,URINE NEGATIVE (NEGATIVE); PROTEIN,URINE NEGATIVE (NEGATIVE); UROBILINOGEN,URINE 0.2 MG/DL (NORMAL); WBC,URINE 25-50 /HPF
[2019-01-07 23:01] LABS: TRICHOMONAS,URINE MODERATE /HPF
[2019-01-08] MEDS ORDERED: ACETAMINOPHEN 500 MG TAB (TYLENOL) PO ONE
[2019-01-08] MEDS ORDERED: metroNIDAZOLE 500 MG (FLAGYL) TAB PO ONE
[2019-01-08 00:10] VITALS: BP 138/83
== END 2019-01-08 00:10 | disposition home or self-care (01) ==
LOC: EDUNIT# 22:13 → ER FS 22:15
DX: O98.319 Other infections with a predominantly sexual mode of transmission complicating pregnancy, unspecified trimester (principal); A59.03 Trichomonal cystitis and urethritis; Z98.890 Other specified postprocedural states; Z3A.00 Weeks of gestation of pregnancy not specified
CPT/HCPCS: 36415; 81000; 84702; 84703; 87088; 87491; 87591

== ENCOUNTER 2019-09-06 06:00 | Inpatient (IN) | payer MEDICAID ==
[2019-09-06] VITALS (61 sets, daily range): BP systolic 99–142; BP diastolic 54–90
[~2019-09-06] VITALS: Ht 152.4 cm; Wt 85.5 kg
--- NOTE | 2019-09-06 06:28 | NUR ---
LEAH MENSAH presented to unit via ambulation from home/ED, accompanied by family & children, for INDUCTION. LEAH MENSAH weighed, gowned, voided, and to bed. EFHM and TOCO applied, VS taken. LEAH MENSAH oriented to bed controls, call light, TV, heat, and A/C controls.
[2019-09-06] MEDS ORDERED: D5 LR IV SOLUTION 1,000 ML IV ONE (06:40)
[2019-09-06] MEDS ORDERED: AMPICILLIN FOR IV USE 2,000 MG in WATER (STERILE) FOR INJECTION 14.8 ML IV SCH (06:51)
[2019-09-06] MEDS ORDERED: D5 LR IV SOLUTION 1,000 ML IV SCH (06:51)
[2019-09-06] MEDS ORDERED: MINERAL OIL CONCENTRATE 99.9% 15 ML UDC TOP PRN (07:00)
[2019-09-06] MEDS ORDERED: AMPICILLIN FOR IV USE 2,000 MG VIAL ONE (07:11)
[2019-09-06] MEDS ORDERED: WATER (STERILE) FOR INJECTION 20 ML ONE (07:11)
[2019-09-06 07:16] LABS: BASOPHILS % (AUTO) 0 % (0-10); EOSINOPHILS # (AUTO) 0.1 10^3/uL (0.0-0.3); EOSINOPHILS % (AUTO) 1 % (0-10); HEMATOCRIT 36 % (35-52); HEMOGLOBIN 12.9 G/DL (11.5-16.0); LYMPHOCYTES # (AUTO) 1.7 X 10^3 (1.0-4.0); LYMPHOCYTES % (AUTO) 22 % (12-44); MEAN CORPUSCULAR HEMOGLOBIN 32 PG (25-34); MEAN CORPUSCULAR HGB CONC 36 G/DL (32-36); MEAN CORPUSCULAR VOLUME 88 FL (80-99); MEAN PLATELET VOLUME 12.2 FL (7.4-10.4); MONOCYTES # (AUTO) 0.6 X 10^3 (0.0-1.0); MONOCYTES % (AUTO) 8 % (0-12); NEUTROPHILS # (AUTO) 5.3 X 10^3 (1.8-7.8); NEUTROPHILS % (AUTO) 69 % (42-75); PLATELET COUNT 113 10^3/uL (130-400); RED CELL DISTRIBUTION WIDTH 13.4 % (10.0-14.5); WHITE BLOOD COUNT 7.7 10^3/uL (4.3-11.0)
--- NOTE | 2019-09-06 07:19 | History & Physical-OB/GYN ---
History of Present Illness History of Present Illness Reason for visit/HPI Pitocin Induction of Labor at 39 weeks gestation Date of Admission Sep 06, 2019 at 06:21 Date Seen by a Provider: Sep 06, 2019 Time Seen by a Provider: 06:55 I consulted on this patient on 09/06/19 07:13 Attending Physician Kofi Alvarado DO Admitting Physician Kofi Alvarado DO Consult Allergies and Home Medications Allergies Coded Allergies: No Known Drug Allergies (Verified , 01/07/19) Home Medications D-Methorphan Hb/P-Epd HCl/Bpm 118 Ml Syrup, 5 ML PO Q4H PRN for COUGH Prescribed by: SHIRIN PORTER on 01/06/18 2141 Patient Home Medication List Home Medication List Reviewed: Yes Past Bjresmw-Hizcae-Nsaswp Hx Patient Social History Marrital Status: Number of Children: 5 Number of living children: 5 Employed/Student: employed Alcohol Use: Denies Use Type Used: Cigarettes Recent Foreign Travel: No Contact w/other who traveled: No Recent Hopitalizations: No Immunizations Up To Date Tetanus Booster (TDap): Unknown Pediatric: No Date of Influenza Vaccine: Jul 10, 2016 Seasonal Allergies Seasonal Allergies: No Surgeries Yes Section Respiratory No Cardiovascular No Neurological No Reproductive System Hx Reproductive Disorders: No Sexually Transmitted Disease: No HIV/AIDS: No Female Reproductive Disorders: Denies Genitourinary No Gastrointestinal No Musculoskeletal No Endocrine History of Endocrine Disorders: No HEENT History of HEENT Disorders: No Cancer No Psychosocial History of Psychiatric Problem: No Integumentary History of Skin or Integumenta: No Skin/Integumentary Disorders: Eczema Blood Transfusions History of Blood Disorders: No Adverse Reaction to a Blood Tr: No Family Medical History Family Hx: Diabetes mellitus 19 MOTHER (will not take medicine) FH: of unknown cause 19 FATHER, Onset:22 FH: stomach ulcer G8 BROTHER Review of Systems Constitutional: see HPI Physical Exam Physical Exam Vital Signs Capillary Refill : Labs Laboratory Tests 09/06/19 07:00: General Appearance: No Apparent Distress, WD/WN Respiratory: Chest Non Tender, Lungs Clear, Normal Breath Sounds Cardiovascular: Regular Rate, Rhythm, No Murmur Abdominal: normal bowel sounds, non tender Vagina: WNL Cervix: WNL, Other (Cervix 2 cm/60%/-3 Vertex/Intact) Uterus: Enlarged (Gravid) Pelvic Exam: normal external exam Extremity: Non Tender, No Calf Tenderness Assessment/Plan Assessment and Plan Intrauterine at 39 weeks 2. GBS Positive Plan: Pitocin Induction of Labor. Artificial Rupture of Membranes. Ampicillin per protocol. Epidural for antepartum pain management. I expect a normal spontaneous vaginal delivery Admission Diagnosis Admission Status: Inpatient Order (span 2 midnights) Reason for Inpatient Admission: Pitocin Induction of Labor at 39 weeks. KOFI ALVARADO DO Sep 06, 2019 07:19 POS
[2019-09-06] MEDS ORDERED: SUFENTA 0.6MCG/ML BUPIVA 0.125 100 ML ONE (07:50)
[2019-09-06] MEDS ORDERED: LACTATED RINGERS 1,000 ML IV ONE ×2 (08:12)
[2019-09-06] MEDS ORDERED: NALOXONE 0.4 MG/ML 1 ML (NARCAN) VIAL IV PRN (08:15)
[2019-09-06] MEDS ORDERED: LIDOCAINE PF 2% 5 ML (XYLOCAINE) VIAL ONE (08:15)
[2019-09-06] MEDS ORDERED: BUPIVACAINE 0.25% 30 ML (SENSORCAINE) VIAL ONE (08:15)
[2019-09-06] MEDS ORDERED: ONDANSETRON 4 MG/2 ML (SDV) Z0FRAN IV PRN (08:15)
[2019-09-06] MEDS ORDERED: fentaNYL INJECTION 100 MCG/2 ML AMP ONE (08:15)
[2019-09-06] MEDS ORDERED: OXYTOCIN PRE-MIX DRIP 500 ML IV ONE (08:54)
[2019-09-06] MEDS ORDERED: OXYTOCIN PRE-MIX DRIP 500 ML IV SCH ×2 (09:08→20:08)
[2019-09-06] MEDS: EPIDURAL (SUFENTA 0.6MCG/ML BUPIVA 0.125%) 100 ML BAG EPI PRN ×2 (09:15→17:00)
[2019-09-06] MEDS: AMPICILLIN FOR IV USE 1,000 MG in WATER (STERILE) FOR INJECTION 7.4 ML IV SCH ×2 (13:56→17:00)
[2019-09-06] MEDS ORDERED: CATHETER FLUSH 10 ML SYR IV SCH ×2 (14:00→22:00)
[2019-09-06] MEDS ORDERED: LIDOCAINE 1% INJ 20 ML 20 ML VIAL ONE (19:42)
--- NOTE | 2019-09-06 20:14 | OB Labor & Delivery Record ---
Vag Delivery Note Vag Delivery Note Date of Delivery: 09/06/19 Preoperative Diagnosis: Laura Strong is a (34 /Para / ,Gestational Age (wks)39with [] Postoperative Diagnosis: Same Surgeon: TRUNG DOMÍNGUEZ Steam Presser: [None] Anesthesia: [Epidural] Delivery Type: [Normal Spontaneous Vaginal Delivery] Findings: [] Viable [Female] , apgars [8, 8], weight [5 lb 15 oz] Lacerations: None Intact placenta with 3 vessel cord. No nuchal cord, body cord or shoulder dystocia Estimated Blood Loss: [300] ml Complications: Tight nuchal cord x 1, doubly clamped and cut Condition: Stable Description of Procedure: The patient is a 34 year old female who presented [for Pitocin Induction of Labor]. She was admitted and informed consent was obtained. Her labor course was unremarkable. She progressed to complete dilatation and began to push. She was then set up for delivery. The 's head was delivered atraumatically in the [SHERYL] position. Nuchal cord x 1, doubly clamped and cut. The shoulders and remainder of the 's body were then delivered without difficulty. Upon delivery, the head was held below the level of the perineum and the mouth and nares were bulb suctioned. The was handed off to the pediatric staff. An intact placenta with 3-vessel cord delivered via Selina and there was found to be minimal bleeding.~ Vigorous fundal massage was performed and the fundus was found to be firm. IV oxytocin was given. Examination of the vagina and perineum revealed no lacerations. The sponge, instrument and needle counts were correct. Mom and baby were both in stable condition in the labor suite. Vitals - Labs Vital Signs - I&O Vital Signs Date Time Temp Pulse Resp B/P (MAP) Pulse Ox O2 Delivery O2 Flow Rate FiO2 09/06/19 19:15 36.5 57 18 132/69 (90) Room Air 09/06/19 19:00 69 18 134/71 (92) Room Air 09/06/19 18:45 88 18 142/66 (91) Room Air 09/06/19 18:30 85 18 125/73 (90) Room Air 09/06/19 18:15 74 18 124/67 (86) Room Air 09/06/19 18:00 76 18 119/70 (86) Room Air 09/06/19 17:45 76 18 124/74 (91) Room Air 09/06/19 17:30 60 18 118/79 (92) Room Air 09/06/19 17:15 69 18 122/83 (96) Room Air 09/06/19 17:00 62 18 121/69 (86) Room Air 09/06/19 16:45 73 18 122/67 (85) Room Air 09/06/19 16:30 36.5 76 18 126/73 (90) Room Air 09/06/19 16:15 81 18 138/69 (92) Room Air 09/06/19 16:00 67 18 124/67 (86) Room Air 09/06/19 15:45 36.2 58 18 112/56 (74) Room Air 09/06/19 15:30 72 18 132/77 (95) Room Air 09/06/19 15:15 75 18 135/74 (94) Room Air 09/06/19 15:00 65 18 122/68 (86) Room Air 09/06/19 14:45 64 18 120/66 (84) Room Air 09/06/19 14:30 64 18 111/64 (80) Room Air 09/06/19 14:15 71 18 109/57 (74) Room Air 09/06/19 14:00 75 18 107/69 (82) Room Air 09/06/19 13:45 72 18 117/70 (86) Room Air 09/06/19 13:30 56 18 123/67 (85) Room Air 09/06/19 13:15 77 18 120/76 (91) Room Air 09/06/19 13:00 63 18 118/77 (91) Room Air 09/06/19 12:45 65 18 120/76 (91) Room Air 09/06/19 12:30 77 18 117/67 (84) Room Air 09/06/19 12:15 76 18 128/76 (93) 98 Room Air 09/06/19 12:00 81 18 120/69 (86) 98 Room Air 09/06/19 11:45 71 18 123/75 (91) 99 Room Air 09/06/19 11:30 36.3 68 18 115/54 (74) 100 Non Rebreather 15.00 09/06/19 11:15 71 18 110/65 (80) 100 Non Rebreather 15.00 09/06/19 11:00 61 18 109/57 (74) 100 Non Rebreather 15.00 09/06/19 10:45 57 18 102/58 (73) 100 Non Rebreather 15.00 09/06/19 10:40 60 18 99/62 (74) 100 Non Rebreather 10.00 09/06/19 10:30 65 18 100/63 (75) 100 Room Air 09/06/19 10:15 61 18 105/67 (80) 99 Room Air 09/06/19 10:00 61 18 120/72 (88) 99 Room Air 09/06/19 09:45 63 18 111/63 (79) 99 Room Air 09/06/19 09:10 68 18 132/64 (86) 100 Room Air 09/06/19 09:07 73 18 142/76 (98) 100 Room Air 09/06/19 09:03 71 18 132/67 (88) 99 Room Air 09/06/19 09:00 74 18 126/65 (85) 99 Room Air 09/06/19 08:55 76 18 125/68 (87) 100 Room Air 09/06/19 08:50 73 18 121/58 (79) 100 Room Air 09/06/19 08:46 71 18 116/60 (78) 100 Room Air 09/06/19 08:43 72 18 122/59 (80) 100 Room Air 09/06/19 08:40 65 18 128/78 (95) 100 Room Air 09/06/19 08:36 79 18 138/87 (104) 99 Room Air 09/06/19 08:30 36.9 77 18 132/88 (103) 100 Room Air 09/06/19 06:39 36.8 82 18 98 Room Air Labs Laboratory Tests 09/06/19 07:00: White Blood Count 7.7, Red Blood Count 4.06L, Hemoglobin 12.9, Hematocrit 36, Mean Corpuscular Volume 88, Mean Corpuscular Hemoglobin 32, Mean Corpuscular Hemoglobin Concent 36, Red Cell Distribution Width 13.4, Platelet Count 113L, Mean Platelet Volume 12.2H, Neutrophils (%) (Auto) 69, Lymphocytes (%) (Auto) 22, Monocytes (%) (Auto) 8, Eosinophils (%) (Auto) 1, Basophils (%) (Auto) 0, Neutrophils # (Auto) 5.3, Lymphocytes # (Auto) 1.7, Monocytes # (Auto) 0.6, Eosinophils # (Auto) 0.1, Basophils # (Auto) 0.0 TRUNG DOMÍNGUEZ DO Sep 06, 2019 20:14 POS
[2019-09-06] MEDS ORDERED: BENZOCAINE/MENTHOL (DERMOPLAST) 60 ML CAN TP PRN (20:15)
[2019-09-06] MEDS ORDERED: DIBUCAINE (NUPERCAINAL) 1% OINT 30 GM TOP PRN (20:15)
[2019-09-06] MEDS ORDERED: WITCH HAZEL(TUCKS) 40 EA JAR TOP PRN (20:15)
[2019-09-06] MEDS ORDERED: MEASLES,MUMPS,RUBELLA 1 EA INJ SQ ONE (20:15)
[2019-09-06] MEDS ORDERED: TETANUS,DIPTH,PERTUSS P/F (BOOSTRIX) 0.5 ML VIAL IM ONE (20:15)
[2019-09-06] MEDS: DOCUSATE SODIUM 100 MG (COLACE) CAP PO SCH (20:56)
[2019-09-06] MEDS: IBUPROFEN 800 MG (MOTRIN) TAB PO SCH (20:56)
--- NOTE | 2019-09-06 22:25 | NUR ---
Pt states she has the urge to void. still unable to move legs. pt placed on a bed rodriguez. Positive void. pericare completed. light rubra noted. epidural cath removed.
--- NOTE | 2019-09-06 23:00 | NUR ---
pt unable to move left leg, will wait to transfer to room. patient requesting cold tray. Cold tray given
[2019-09-06] MEDS: ACETAMINOPHEN 500 MG TAB (TYLENOL) PO SCH (23:26)
--- NOTE | 2019-09-07 00:30 | NUR ---
pt still unable to move left leg. will wait to transfer to room. russ stein
--- NOTE | 2019-09-07 00:56 | NUR ---
Report received from jennie lopez rn
[2019-09-07 02:00] VITALS: BP 111/66
--- NOTE | 2019-09-07 02:00 | NUR ---
pt laying in bed, vss. pt able to lift right leg up out of bed but unable to lift heel of left leg.
--- NOTE | 2019-09-07 02:30 | NUR ---
Rn to room, instructed pt that we will transfer her to new room via wheelchair as soon as this RN has another RN assist with transfer.
--- NOTE | 2019-09-07 03:00 | NUR ---
Rn to room for transfer. Pt sitting on toilet. Rn asked how pt is feeling, pt states could not wait for RN and wanted to get out of bed. Pt denies dizziness or light headedness, void noted. Pt to to transfer to PP room. Pt up to Bathroom and wishes to shower at this time. Shower set up, clean gown, pad/panties in bathroom. Info papers explained. and discussed plan of care.
[2019-09-07] MEDS: IBUPROFEN 800 MG (MOTRIN) TAB PO SCH ×2 (05:38→16:34)
[2019-09-07] MEDS: ACETAMINOPHEN 500 MG TAB (TYLENOL) PO SCH ×3 (05:38→18:19)
[2019-09-07 05:50] VITALS: BP 124/72
[2019-09-07] MEDS ORDERED: ACET-78 PO (05:52)
[2019-09-07] MEDS ORDERED: IBUP-1780 PO (05:52)
[2019-09-07] MEDS ORDERED: OXC5T PO (05:52)
[2019-09-07] MEDS ORDERED: DOCU100C37 PO (05:52)
--- NOTE | 2019-09-07 05:57 | Discharge Summary ---
Diagnosis/Chief Complaint Date of Admission Sep 06, 2019 at 06:21 Date of Discharge September 07, 2019 Discharge Date: Sep 07, 2019 Discharge Time: 20:00 Admission Diagnosis Admission Diagnosis Intrauterine at 39 weeks 2. GBS Positive Discharge Diagnosis Intrauterine at 39 weeks 2. GBS Positive Reason Hospital Visit Pitocin Induction of Labor at 39 weeks gestation Discharge Summary Hospital Course Was the Problem List Reviewed?: Yes Hospital Course Ms. Strong was admitted to the hospital for Pitocin Induction of Labor at 39 weeks gestation. I artificially ruptured her membranes. She received an Epidural for antepartum pain management. She progressed to complete, delivered a healthy viable female without complications. The remainder of her hospitalization was unremarkable. Her vital signs remained stable throughout her hospitalization. She will be discharge to home with instructions, prescriptions, and a follow up appointment. Labs Laboratory Tests 09/06/19 07:00: Red Blood Count 4.06L, Platelet Count 113L, Mean Platelet Volume 12.2H Procedures None. Discharge Physical Examination Allergies: Coded Allergies: No Known Drug Allergies (Verified , 01/07/19) Vitals & I&Os Vital Signs Date Time Temp Pulse Resp B/P (MAP) Pulse Ox O2 Delivery O2 Flow Rate FiO2 09/07/19 05:50 36.7 59 18 124/72 (89) 99 Room Air 09/06/19 11:30 15.00 General Appearance: Alert, Oriented X3, Cooperative HEENT: Atraumatic Respiratory: Clear to Auscultation, Normal Air Movement Cardiovascular: Regular Rate, No Murmurs Abdominal: Normal Bowel Sounds Extremities: No Clubbing, No Cyanosis Skin: No Rashes Neuro: Normal Gait, Normal Speech Psych/Mental Status: Mental Status NL Discharge Home Medications Reviewed and agree with Discharge Medication list on patient's Discharge Instruction sheet Instructions to Patient/Family Please see electronic discharge instructions given to patient. Clinical Quality Measures DVT/VTE Risk/Contraindication: Risk Factor Score Per Nursin RFS Level Per Nursing on Admit: 2=Moderate TRUNG DOMÍNGUEZ DO Sep 07, 2019 05:57 POS
[2019-09-07 06:18] LABS: BASOPHILS % (AUTO) 0 % (0-10); EOSINOPHILS # (AUTO) 0.1 10^3/uL (0.0-0.3); EOSINOPHILS % (AUTO) 1 % (0-10); HEMATOCRIT 33 % (35-52); HEMOGLOBIN 11.1 G/DL (11.5-16.0); LYMPHOCYTES # (AUTO) 1.8 X 10^3 (1.0-4.0); LYMPHOCYTES % (AUTO) 20 % (12-44); MEAN CORPUSCULAR HEMOGLOBIN 31 PG (25-34); MEAN CORPUSCULAR HGB CONC 34 G/DL (32-36); MEAN CORPUSCULAR VOLUME 92 FL (80-99); MEAN PLATELET VOLUME 12.6 FL (7.4-10.4); MONOCYTES # (AUTO) 0.5 X 10^3 (0.0-1.0); MONOCYTES % (AUTO) 6 % (0-12); NEUTROPHILS # (AUTO) 6.8 X 10^3 (1.8-7.8); NEUTROPHILS % (AUTO) 74 % (42-75); PLATELET COUNT 101 10^3/uL (130-400); RED CELL DISTRIBUTION WIDTH 13.5 % (10.0-14.5); WHITE BLOOD COUNT 9.2 10^3/uL (4.3-11.0)
[2019-09-07] MEDS ORDERED: PRENATAL VITAMIN 1 EA TAB PO SCH (07:00)
[2019-09-07 09:00] VITALS: BP 117/75
--- NOTE | 2019-09-07 09:00 | NUR ---
A.M. ASSESSMENT COMPLETED. VSS. PT'S OTHER CHILDREN RUNNING AROUND IN THE ROOM. PT'S MOTHER ALSO IN ROOM. PT IS NAKED IN BED. C/O LOW BACK PAIN. WARM BLANKET APPLIED.
--- NOTE | 2019-09-07 09:45 | Anesthesia-Regional Post-Op ---
Regional Patient Condition Mental Status: Alert, Oriented x3 Circulation: Same as Pre-Op Headache: Absent Sensation: Full Recovery Motor Block: Absent Post Op Complications Complications None Follow Up Care/Instructions Patient Instructions None needed. Anesthesia/Patient Condition Patient is doing well, no complaints, stable vital signs, no apparent adverse anesthesia problems. No complications reported per nursing. LAURIE ROMAN CRNA Sep 07, 2019 09:45 POS
[2019-09-07] MEDS: DOCUSATE SODIUM 100 MG (COLACE) CAP PO SCH (10:09)
--- NOTE | 2019-09-07 10:09 | NUR ---
REQUESTED PAIN MEDS. OXYIR 5 MG P.O. FOR C/O LOW BACK PAIN "FROM EPIDURAL".
--- NOTE | 2019-09-07 11:15 | NUR ---
ELVIN SIDHU DESIGN RELEASE ENGINEER HERE TO SEE PT.
[2019-09-07 12:30] VITALS: BP 114/60
--- NOTE | 2019-09-07 12:30 | NUR ---
RESTING ON SIDE IN BED. CONTINUES TO C/O PAIN IN BACK. FAMILY REMAINS AT BEDSIDE WITH GRANDMOTHER CARING FOR INFANT.
--- NOTE | 2019-09-07 13:00 | NUR ---
EATING STORK MEAL.
--- NOTE | 2019-09-07 13:36 | NUR ---
ELVIN SIDHU NEWS OPERATIONS MANAGER RETURNED TO PT ROOM TO TALK WITH PT.
--- NOTE | 2019-09-07 14:55 | NUR ---
RHOGAM 1 VIAL IM IN LEFT VG SITE. VISITORS AT BEDSIDE.
--- NOTE | 2019-09-07 15:10 | NUR ---
TDAP GIVEN IM IN LEFT DELTOID. SITE CLEAR.
[2019-09-07 16:30] VITALS: BP 129/73
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
--- NOTE | 2019-09-07 18:00 | NUR ---
TWO TIMES THIS SHIFT PT HAS LEFT THE FLOOR AND RETURNED WITH RAMIRO ELLISON. ASKED PT IF SHE HAD WENT TO [facility] ON SECOND TRIP BECAUSE THIS RN NOTED HER PRESCRIPTIONS IN HER HANDS WHEN SHE LEFT. DECLINES. PLAN TO DISCHARGE THIS EVENING. LOTS OF FAMILY HERE ALL DAY.
--- NOTE | 2019-09-07 19:15 | NUR ---
DISCHARGE INSTRUCTIONS REVIEWED WITH COPY TO PT. STATES UNDERSTANDING OF ALL INSTRUCTIONS AND NEED TO F/U SCHEDULED AND NEEDED.
--- NOTE | 2019-09-07 20:15 | NUR ---
Pt. to desk, unofficial copy of certificate signed by pt, POC for D/C reviewed w/pt, pt. verbalized understanding,pt. has her own copy of D/C instructions & Rx she filled, will D/C now. in nsy for labs, will wait for results. Pt. & family ambulating off of floor.
--- OUTSIDE RECORDS SUMMARY | 2019-10-01 05:45 | XMS REPORT ---
Author Author Laura Carrizales Organization [facility] Address [address] [place] [address] Care Team Providers Care Assembly Person Name Role Phone LYN Carrizales Unavailable PROBLEMS Type Condition ICD9-CM Code [id number] Code Onset Dates Condition S tatus SNOMED Code Problem Depressive disorder, not elsewhere classified F32. 9 Active [id number] Problem Severe episode of recurrent major depressive disorder, without psychotic features F33.2 Active [id number] ALLERGIES No Information ENCOUNTERS Encounter Location Date Diagnosis [address] [id number] May, [address] [address] Apr, [address] [address] Mar, Supervision of other normal V2 2.[address] [address] Mar, [address] [address] Mar, Supervision of other normal V2 2.1 and Encounter for supervision of other normal in first trimester Z34.81 [facility] [address] [facility] [id number] [address] [place] [address] January, Severe episode of recurrent major depressive disorder, without psychotic features F33.2 [facility] [address] [facility] [id number] [address] [place] [address] January, [facility] [address] [place] [id number] [address] [place] [address] Jun, Non-intractable vomiting wit h nausea, unspecified vomiting type R11.2 and Viral gastroenteritis A08.4 [facility] [id number] [place] [address] Dec, [facility] [address] [facility] [id number] [address] [place] [address] Dec, Generalized abdominal pain R 10.84 and Acute cystitis with hematuria N30.01 [facility] [address] [facility] [id number] [address] [place] [address] Sep, [facility] [address] [facility] [id number] [address] [place] [address] Aug, Normal in multigra javid Z34.80 [place] [address] [facility] [id number] [address] [place] [address] Jul, [facility] [address] [facility] [id number] [address] [place] [address] Jul, Third trimester Z3 3.1 [facility] [address] [place] [id number] [address] [place] [address] Jul, Third trimester at less than 36 weeks Z33.1 [place] [address] [place] [id number] [address] [place] [address] Jun, Third trimester at less than 36 weeks Z33.1 [facility] [address] [facility] [id number] [address] [place] [address] Jun, [facility] [address] [place] [id number] [address] [place] [address] Jun, 30 weeks gestation of pregna ncy Z3A.30 ; Encounter for immunization Z23 and Abnormal glucose tolerance test (GTT) R73.02 [facility] [address] [facility] [id number] [address] [place] [address] 28 May, 2016 Third trimester at less than 36 weeks Z33.1 and Rh negative status during , third trimester O09.893 [facility] [address] [place] [id number] [address] [place] [address] 07 May, 2016 25 weeks gestation of pregna ncy Z3A.25 [facility] [address] [id number] [address] [place] [address] May, [facility] [address] [id number] [address] [place] [address] Apr, Normal in multigra javid Z34.80 [facility] [address] [facility] [id number] [address] [place] [address] Mar, [place] [address] [facility] [id number] [address] [place] [address] Mar, test positive Z32. 01 [place] [address] [facility] [id number] [address] [place] [address] Nov, Urinary frequency R35.0 ; Or al contraceptive pill surveillance Z30.41 ; Routine screening for STI (sexually transmitted infection) Z11.3 ; Irregular menses N92.6 ; Urinary tract infection, site not specified N39.0 and Screening for malignant neoplasm of cervix Z12.4 [place] [address] [facility] [id number] [address] [place] [address] Sep, Depressive disorder, not els ewhere classified F32.9 [place] [address] [facility] [id number] [address] [place] [address] Apr, [place] [address] [facility] [id number] [address] [place] [address] Apr, Supervision of other normal V22.1 and test positive V72.42 [place] [address] [id number] [address] [place] [address] Apr, Supervision of other normal V22.1 [place] [address] [facility] [id number] [address] [place] [address] Mar, [place] [address] [facility] [id number] [address] [place] [address] January, test positive V72. 42 [place] [address] [facility] [id number] [address] [place] [address] 14 Dec, 2014 [facility] [address] [id number] [address] [place] [address], [place] [address] 13 Dec, 2014 [facility] [address] [id number] [address] [place] [address], [place] [address] Jul, [facility] [address] [id number] [address] [place] [address], [place] [address] Jul, [facility] [address] [id number] [address] [place] [address], [place] [address] Jul, [facility] [address] [id number] [address] [place] [address], [place] [address] Jul, [facility] [address] [id number] [address] [place] [address], [place] [address] Jul, [facility] [address] [id number] [address] [place] [address], [place] [address] Jul, [facility] [address] [id number] [address] [place] [address], [place] [address] Jul, [facility] [address] [id number] [address] [place] [address], [place] [address] Jul, [facility] [address] [id number] [address] [place] [address], [place] [address] Jul, [facility] [address] [id number] [address] [place] [address], [place] [address] Jul, [facility] [address] [id number] [address] [place] [address], [place] [address] Apr, [facility] [address] [id number] [address] [place] [address], [place] [address] Apr, [facility] [address] [id number] [address] [place] [address], [place] [address] Jul, [facility] [address] [id number] [address] [place] [address], [place] [address] Jul, [facility] [address] [id number] [address] [place] [address], [place] [address] 14 Jul, 2013 [facility] [address] [id number] [address] [place] [address], [place] [address] 14 Jul, 2013 [facility] [address] [id number] [address] [place] [address], [place] [address] Jul, [facility] [address] [id number] [address] [place] [address], [place] [address] Jul, [facility] [address] [id number] [address] [place] [address], [place] [address] Jul, [facility] [address] [id number] [address] [place] [address], [place] [address] Jul, [facility] [address] [id number] [address] [place] [address], [place] [address] Jul, [facility] [address] [id number] [address] [place] [address], [place] [address] Jul, [facility] [address] [id number] [address] [place] [address], [place] [address] Jun, [facility] [address] [id number] [address] [place] [address], [place] [address] Jun, [facility] [address] [id number] [address] [place] [address], [place] [address] Jun, [facility] [address] [id number] [address] [place] [address], [place] [address] Jun, [facility] [address] [id number] [address] [place] [address], [place] [address] Aug, [facility] [address] [id number] [address] [place] [address], [place] [address] Aug, [facility] [address] [id number] [address] [place] [address], [place] [address] Aug, [facility] [address] [id number] [address] [place] [address], [place] [address] Apr, IMMUNIZATIONS No Known Immunizations SOCIAL HISTORY Never Assessed REASON FOR VISIT PLAN OF CARE VITAL SIGNS MEDICATIONS Unknown Medications RESULTS No Results PROCEDURES No Known procedures INSTRUCTIONS MEDICATIONS ADMINISTERED No Known Medications MEDICAL (GENERAL) HISTORY Type Description Date Medical History History of Rhogam Injection Surgical History D&C 2010 Hospitalization History Childbirth x 5
--- OUTSIDE RECORDS SUMMARY | 2019-10-01 05:45 | XMS REPORT ---
Author Author Laura Carrizales Organization [facility] Address [address] [place] [address] Care Team Providers Care Javascript Front End Developer Name Role Phone LYN Carrizales Unavailable PROBLEMS Type Condition ICD9-CM Code [id number] Code Onset Dates Condition S tatus SNOMED Code Problem Depressive disorder, not elsewhere classified F32. 9 Active [id number] Problem Severe episode of recurrent major depressive disorder, without psychotic features F33.2 Active [id number] ALLERGIES No Information ENCOUNTERS Encounter Location Date Diagnosis [address] [address] May, [address] [address] Apr, [address] [address] Mar, Supervision of other normal V2 2.[address] [address] Mar, [address] [address] Mar, Supervision of other normal V2 2.1 and Encounter for supervision of other normal in first trimester Z34.81 [facility] [address] [facility] [id number] [address] [place] [address] January, Severe episode of recurrent major depressive disorder, without psychotic features F33.2 [facility] [address] [facility] [id number] [address] [place] [address] January, [facility] [address] [place] [id number] [address] [place] [address] Jun, Non-intractable vomiting wit h nausea, unspecified vomiting type R11.2 and Viral gastroenteritis A08.4 [facility] [id number] [place] [address] Dec, [facility] [address] [facility] [id number] [address] [place] [address] Dec, Generalized abdominal pain R 10.84 and Acute cystitis with hematuria N30.01 [facility] [address] [facility] [id number] [address] [place] [address] Sep, [facility] [address] [facility] [id number] [address] [place] [address] Aug, Normal in multigra javid Z34.80 [place] [address] [facility] [id number] [address] [place] [address] Jul, [facility] [address] [facility] [id number] [address] [place] [address] Jul, Third trimester Z3 3.1 [facility] [address] [place] [id number] [address] [place] [address] Jul, Third trimester at less than 36 weeks Z33.1 [place] [address] [place] [id number] [address] [place] [address] Jun, Third trimester at less than 36 weeks Z33.1 [facility] [address] [facility] [id number] [address] [place] [address] Jun, [facility] [address] [place] [id number] [address] [place] [address] Jun, 30 weeks gestation of pregna ncy Z3A.30 ; Encounter for immunization Z23 and Abnormal glucose tolerance test (GTT) R73.02 [facility] [address] [facility] [id number] [address] [place] [address] 28 May, 2016 Third trimester at less than 36 weeks Z33.1 and Rh negative status during , third trimester O09.893 [facility] [address] [place] [id number] [address] [place] [address] 07 May, 2016 25 weeks gestation of pregna ncy Z3A.25 [facility] [address] [id number] [address] [place] [address] May, [facility] [address] [id number] [address] [place] [address] Apr, Normal in multigra javid Z34.80 [facility] [address] [facility] [id number] [address] [place] [address] Mar, [place] [address] [facility] [id number] [address] [place] [address] Mar, test positive Z32. 01 [place] [address] [facility] [id number] [address] [place] [address] Nov, Urinary frequency R35.0 ; Or al contraceptive pill surveillance Z30.41 ; Routine screening for STI (sexually transmitted infection) Z11.3 ; Irregular menses N92.6 ; Urinary tract infection, site not specified N39.0 and Screening for malignant neoplasm of cervix Z12.4 [place] [address] [facility] [id number] [address] [place] [address] Sep, Depressive disorder, not els ewhere classified F32.9 [place] [address] [facility] [id number] [address] [place] [address] Apr, [place] [address] [facility] [id number] [address] [place] [address] Apr, Supervision of other normal V22.1 and test positive V72.42 [place] [address] [id number] [address] [place] [address] Apr, Supervision of other normal V22.1 [place] [address] [facility] [id number] [address] [place] [address] Mar, [place] [address] [facility] [id number] [address] [place] [address] January, test positive V72. 42 [place] [address] [facility] [id number] [address] [place] [address] 14 Dec, 2014 [facility] [address] [id number] [address] [place] [address], [place] [address] 13 Dec, 2014 [facility] [address] [id number] [address] [place] [address], [place] [address] Jul, [facility] [address] [id number] [address] [place] [address], [place] [address] Jul, [facility] [address] [id number] [address] [place] [address], [place] [address] Jul, [facility] [address] [id number] [address] [place] [address], [place] [address] Jul, [facility] [address] [id number] [address] [place] [address], [place] [address] Jul, [facility] [address] [id number] [address] [place] [address], [place] [address] Jul, [facility] [address] [id number] [address] [place] [address], [place] [address] Jul, [facility] [address] [id number] [address] [place] [address], [place] [address] Jul, [facility] [address] [id number] [address] [place] [address], [place] [address] Jul, [facility] [address] [id number] [address] [place] [address], [place] [address] Jul, [facility] [address] [id number] [address] [place] [address], [place] [address] Apr, [facility] [address] [id number] [address] [place] [address], [place] [address] Apr, [facility] [address] [id number] [address] [place] [address], [place] [address] Jul, [facility] [address] [id number] [address] [place] [address], [place] [address] Jul, [facility] [address] [id number] [address] [place] [address], [place] [address] 14 Jul, 2013 [facility] [address] [id number] [address] [place] [address], [place] [address] 14 Jul, 2013 [facility] [address] [id number] [address] [place] [address], [place] [address] Jul, [facility] [address] [id number] [address] [place] [address], [place] [address] Jul, [facility] [address] [id number] [address] [place] [address], [place] [address] Jul, [facility] [address] [id number] [address] [place] [address], [place] [address] Jul, [facility] [address] [id number] [address] [place] [address], [place] [address] Jul, [facility] [address] [id number] [address] [place] [address], [place] [address] Jul, [facility] [address] [id number] [address] [place] [address], [place] [address] Jun, [facility] [address] [id number] [address] [place] [address], [place] [address] Jun, [facility] [address] [id number] [address] [place] [address], [place] [address] Jun, [facility] [address] [id number] [address] [place] [address], [place] [address] Jun, [facility] [address] [id number] [address] [place] [address], [place] [address] Aug, [facility] [address] [id number] [address] [place] [address], [place] [address] Aug, [facility] [address] [id number] [address] [place] [address], [place] [address] Aug, [facility] [address] [id number] [address] [place] [address], [place] [address] Apr, IMMUNIZATIONS No Known Immunizations SOCIAL HISTORY Never Assessed REASON FOR VISIT PLAN OF CARE VITAL SIGNS MEDICATIONS Unknown Medications RESULTS No Results PROCEDURES No Known procedures INSTRUCTIONS MEDICATIONS ADMINISTERED No Known Medications MEDICAL (GENERAL) HISTORY Type Description Date Medical History History of Rhogam Injection Surgical History D&C 2010 Hospitalization History Childbirth x 5
--- OUTSIDE RECORDS SUMMARY | 2019-10-01 05:45 | XMS REPORT ---
Author Author Laura Carrizales Organization [facility] Address [address] [place] [address] Care Team Providers Care Educational Administrator Name Role Phone LYN Carrizales Unavailable PROBLEMS Type Condition ICD9-CM Code YYL12-VO Code Onset Dates Condition S tatus SNOMED Code Problem Depressive disorder, not elsewhere classified F32. 9 Active [id number] Problem Severe episode of recurrent major depressive disorder, without psychotic features F33.2 Active [id number] ALLERGIES No Information ENCOUNTERS Encounter Location Date Diagnosis [address] [address] 17 May, [address] [address] May, [address] [address] Apr, Encounter for supervision of other en l , second trimester Z34.[address] [address] Mar, Supervision of other normal V2 2.[address] [address] Mar, [address] [address] Mar, Supervision of other normal V2 2.1 and Encounter for supervision of other normal in first trimester Z34.81 [facility] [address] [facility] [id number] [address] [place] [address] January, Severe episode of recurrent major depressive disorder, without psychotic features F33.2 [facility] [address] [facility] [id number] [address] [place] [address] January, [facility] [address] [facility] [id number] [address] [place] [address] Jun, Non-intractable vomiting wit h nausea, unspecified vomiting type R11.2 and Viral gastroenteritis A08.4 [facility] [address] [facility] [id number] [address] [place] [address] Dec, [facility] [address] [facility] [id number] [address] [place] [address] Dec, Generalized abdominal pain R 10.84 and Acute cystitis with hematuria N30.01 [facility] [address] [facility] [id number] [address] [place] [address] Sep, [facility] [address] [facility] [id number] [address] [place] [address] Aug, Normal in multigra javid Z34.80 [facility] [address] [place] [id number] [address] [place] [address] Jul, [facility] [address] [place] [id number] [address] [place] [address] Jul, Third trimester Z3 3.1 [facility] [address] [facility] [id number] [address] [place] [address] 16 Jul, 2016 Third trimester at less than 36 weeks Z33.1 [facility] [address] [place] [id number] [address] [place] [address] Jun, Third trimester at less than 36 weeks Z33.1 [facility] [address] [place] [id number] [address] [place] [address] Jun, [facility] [address] [place] [id number] [address] [place] [address] Jun, 30 weeks gestation of pregna ncy Z3A.30 ; Encounter for immunization Z23 and Abnormal glucose tolerance test (GTT) R73.02 [facility] [address] [facility] [id number] [address] [place] [address] 28 May, 2016 Third trimester at less than 36 weeks Z33.1 and Rh negative status during , third trimester O09.893 [facility] [address] [id number] [address] [place] [address] May, 25 weeks gestation of pregna ncy Z3A.25 [facility] [address] [id number] [address] [place] [address] May, [facility] [address] [id number] [address] [place] [address] Apr, Normal in multigra javid Z34.80 [facility] [address] [id number] [address] [place] [address] Mar, [place] [address] [id number] [address] [place] [address] Mar, test positive Z32. 01 [place] [address] [id number] [address] [place] [address] Nov, Urinary frequency R35.0 ; Or al contraceptive pill surveillance Z30.41 ; Routine screening for STI (sexually transmitted infection) Z11.3 ; Irregular menses N92.6 ; Urinary tract infection, site not specified N39.0 and Screening for malignant neoplasm of cervix Z12.4 [place] [address] [id number] [address] [place] [address] Sep, Depressive disorder, not els ewhere classified F32.9 [facility] [address] [id number] [address] [place] [address] Apr, [facility] [address] [id number] [address] [place] [address] Apr, Supervision of other normal V22.1 and test positive V72.42 [facility] [address] [id number] [address] [place] [address] Apr, Supervision of other normal V22.1 [facility] [address] [id number] [address] [place] [address] Mar, [facility] [address] [id number] [address] [place] [address] January, test positive V72. 42 [facility] [address] [id number] [address] [place] [address], [place] [address] 14 Dec, 2014 [facility] [address] [id number] [address] [place] [address] Dec, [facility] [address] [id number] [address] [place] [address] Jul, [facility] [address] [id number] [address] [place] [address], [place] [address] Jul, [facility] [address] [id number] [address] [place] [address], [place] [address] Jul, [facility] [address] [id number] [address] [place] [address], [place] [address] Jul, [facility] [address] [id number] [address] [place] [address], [place] [address] Jul, [facility] [address] [id number] [address] [place] [address] Jul, [facility] [address] [id number] [address] [place] [address], [place] [address] Jul, [facility] [address] [id number] [address] [place] [address] Jul, [facility] [address] [id number] [address] [place] [address], [place] [address] Jul, [facility] [address] [id number] [address] [place] [address] Jul, [facility] [address] [id number] [address] [place] [address], [place] [address] Apr, [facility] [address] [id number] [address] [place] [address] Apr, [facility] [address] [id number] [address] [place] [address] Jul, [facility] [address] [id number] [address] [place] [address], [place] [address] Jul, [facility] [address] [id number] [address] [place] [address], [place] [address] Jul, [facility] [address] [id number] [address] [place] [address], [place] [address] Jul, [facility] [address] [id number] [address] [place] [address], [place] [address] Jul, [facility] [address] [id number] [address] [place] [address], [place] [address] Jul, [facility] [address] [id number] [address] [place] [address], [place] [address] Jul, [facility] [address] [id number] [address] [place] [address], [place] [address] Jul, [facility] [address] [id number] [address] [place] [address], [place] [address] Jul, [facility] [address] [id number] [address] [place] [address], [place] [address] Jul, [facility] [address] [id number] [address] [place] [address] Jun, [facility] [address] [id number] [address] [place] [address] Jun, [facility] [address] [id number] [address] [place] [address] Jun, [facility] [address] [id number] [address] [place] [address] Jun, [facility] [address] [id number] [address] [place] [address] Aug, [facility] [address] [id number] [address] [place] [address] Aug, [facility] [address] [id number] [address] [place] [address] Aug, [facility] [address] [facility] [id number] [address] [place] [address] Apr, IMMUNIZATIONS No Known Immunizations SOCIAL HISTORY Never Assessed REASON FOR VISIT PLAN OF CARE VITAL SIGNS Height 60 in 2014-05-25 Weight 131.1 lbs 2014-05-25 Temperature 99.6 degrees Fahrenheit 2014-05-25 Heart Rate 78 bpm 2014-05-25 Respiratory Rate 18 2014-05-25 Blood pressure systolic 120 mmHg 2014-05-25 Blood pressure diastolic 70 mmHg 2014-05-25 MEDICATIONS Unknown Medications RESULTS No Results PROCEDURES Procedure Date Ordered Result Body Site URINE TEST May 25, 2014 INSTRUCTIONS MEDICATIONS ADMINISTERED No Known Medications MEDICAL (GENERAL) HISTORY Type Description Date Medical History History of Rhogam Injection Surgical History D&C 2010 Hospitalization History Childbirth x 5
--- OUTSIDE RECORDS SUMMARY | 2019-10-01 05:45 | XMS REPORT ---
Author Author Laura Driver Doctor Organization [facility] Address Unknown Phone Unavailable Care Team Providers Care Corporate Communications Associate Name Role Phone Migration, Doctor Unavailable Unavailable PROBLEMS Type Condition ICD9-CM Code LHL80-OD Code Onset Dates Condition S tatus SNOMED Code Problem Depressive disorder, not elsewhere classified F32. 9 Active [id number] Problem Severe episode of recurrent major depressive disorder, without psychotic features F33.2 Active [id number] ALLERGIES No Information ENCOUNTERS Encounter Location Date Diagnosis [place] [address] [address] January, Severe episode of recurrent major depressive disorder, without psychotic features F33.2 [place] [address] [address] January, [facility] [address] [address] Jun, Non-intractable vomiting wit h nausea, unspecified vomiting type R11.2 and Viral gastroenteritis A08.4 [place] [address] [address] Dec, [facility] [address] [address] Dec, Generalized abdominal pain R 10.84 and Acute cystitis with hematuria N30.01 [place] [address] [address] Sep, [place] [address] [address] Aug, Normal in multigra javid Z34.80 [place] [address] [address] Jul, [place] [address] [place] [address] [place] [address] Jul, Third trimester Z3 3.1 [facility] [address] [place] [id number] [place] [phone] Jul, Third trimester at less than [address] [facility] [address] [place] [id number] [place] [address] Jun, Third trimester at less than [address] [facility] [address] [facility] [id number] [address] [place] [phone] Jun, [place] [address] [place] [id number] [place] [id number] Jun, 30 weeks gestation of pregna ncy Z3A.30 ; Encounter for immunization Z23 and Abnormal glucose tolerance test (GTT) R73.02 [place] [address] [place] [id number] [place] [id number] May, Third trimester at less than 36 weeks Z33.1 and Rh negative status during , third trimester O09.893 [place] [address] [place] [id number] [place] [phone] May, 25 weeks gestation of pregna ncy Z3A.25 [place] [address] [place] [id number] [place] [address] May, [place] [address] [place] [id number] [place] [address] Apr, Normal in multigra javid Z34.80 [facility] [address] [facility] [id number] [address] [place] [address] Mar, [place] [address] [place] [id number] [place] [id number] Mar, test positive Z32. 01 [facility] [address] [facility] [id number] [address] [place] [address] Nov, Urinary frequency R35.0 ; Or al contraceptive pill surveillance Z30.41 ; Routine screening for STI (sexually transmitted infection) Z11.3 ; Irregular menses N92.6 ; Urinary tract infection, site not specified N39.0 and Screening for malignant neoplasm of cervix Z12.4 [facility] [address] [id number] [address] [place] [id number] 27 Sep, 2015 Depressive disorder, not els ewhere classified F32.9 [facility] [address] [id number] [address] [place] [address] Apr, [facility] [address] [id number] [address] [place] [phone] Apr, Supervision of other normal V22.1 and test positive V72[address]42 [facility] [address] [id number] [address] [place] [address] Apr, Supervision of other normal V22.1 [facility] [address] [id number] [address] [place] [address] Mar, [facility] [address] [id number] [address] [place] [phone] January, test positive V72. 42 [facility] [address] [id number] [address] [place] [phone] Dec, [facility] [address] [id number] [address] [place] [phone] Dec, [facility] [address] [id number] [address] [place] [address] Jul, [facility] [address] [id number] [address] [place] [id number] Jul, [facility] [address] [id number] [address] [place] [address] Jul, [facility] [address] [id number] [address] [place] [phone] Jul, [facility] [address] [id number] [address] [place] [phone] Jul, [facility] [address] [id number] [address] [place] [address], [place] [address] Jul, [facility] [address] [id number] [address] [place] [address], [place] [address] Jul, [facility] [address] [id number] [address] [place] [address], [place] [address] Jul, [facility] [address] [id number] [address] [place] [address], [place] [address] Jul, [facility] [address] [id number] [address] [place] [address], [place] [address] Jul, [facility] [address] [id number] [address] [place] [address], [place] [address] Apr, [facility] [address] [id number] [address] [place] [address], [place] [address] Apr, [facility] [address] [id number] [address] [place] [address], [place] [address] Jul, [facility] [address] [id number] [address] [place] [address], [place] [address] Jul, [facility] [address] [id number] [address] [place] [address], [place] [address] Jul, [facility] [address] [id number] [address] [place] [address], [place] [address] Jul, [facility] [address] [id number] [address] [place] [address], [place] [address] Jul, [facility] [address] [id number] [address] [place] [address], [place] [address] Jul, [facility] [place] [facility] [address] [id number] [address] [place] [address], [place] [address] Jul, [facility] [address] [id number] [address] [place] [address], [place] [address] Jul, [facility] [place] [facility] [address] [id number] [address] [place] [phone] Jul, [facility] [address] [id number] [address] [place] [phone] Jul, [facility] [address] [id number] [address] [place] [phone] Jun, [facility] [address] [id number] [address] [place] [phone] Jun, [facility] [address] [id number] [address] [place] [id number] Jun, [facility] [address] [id number] [address] [place] [phone] Jun, [facility] [address] [id number] [address] [place] [phone] Aug, [facility] [address] [id number] [address] [place] [phone] Aug, [facility] [address] [id number] [address] [place] [phone] Aug, [facility] [address] [id number] [address] [place] [phone] Apr, IMMUNIZATIONS No Known Immunizations SOCIAL HISTORY Never Assessed REASON FOR VISIT EMR-[facility] PLAN OF CARE VITAL SIGNS MEDICATIONS Unknown Medications RESULTS No Results PROCEDURES No Known procedures INSTRUCTIONS MEDICATIONS ADMINISTERED No Known Medications MEDICAL (GENERAL) HISTORY Type Description Date Medical History History of Rhogam Injection Surgical History D&C 2011 Hospitalization History Childbirth x 5
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
== END 2019-09-07 20:15 | disposition home or self-care (01) | DRG 807 ==
LOC: LDRP 06:21
PROVIDERS: ADMIT Obstetrics & Gynecology; ATTEND Obstetrics & Gynecology
PROC: 10E0XZZ Delivery of Products of Conception, External Approach (ICD-10-PCS; principal; 2019-09-06)
PROC: 3E033VJ Introduction of Other Hormone into Peripheral Vein, Percutaneous Approach (ICD-10-PCS; 2019-09-06)
DX: O99.824 Streptococcus B carrier state complicating childbirth (principal); O99.334 Smoking (tobacco) complicating childbirth; F17.210 Nicotine dependence, cigarettes, uncomplicated; O69.81X0 Labor and delivery complicated by cord around neck, without compression, not applicable or unspecified; Z3A.39 39 weeks gestation of pregnancy; Z37.0 Single live birth; Z23 Encounter for immunization
CPT/HCPCS: 36415; 83033; 85025; 86850; 86900; 86901; 90715

== ENCOUNTER 2020-01-01 18:13 | Emergency (ER) | payer MEDICAID, OTHER ==
[~2020-01-01] VITALS: Ht 152 cm; Wt 77.2 kg
[~2020-01-01 18:13] MED LIST changes: +ACET-78 PO; +IBUP-1780 PO; +OXC5T PO
--- OUTSIDE RECORDS SUMMARY | 2020-01-01 18:20 | XMS REPORT ---
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 (19230) Insulin NO (no code) [facility] dependent [facility] diabetes [facility] mellitus Ql (92713) Mother's race (no code) [facility] (57980) Neural tube 1 IN 1974 (no code) [facility] Q[facility] (fetus) [facility] (53227) Number of 1 (no code) [facility] fet[facility] by US [facility] (04614) Prev NO (no code) [facility] Down Synd [facility] (75956) Second trimester no information (no code) [facility] quad maternal [facility] screen Curly [facility] [Interp] (61601) Service comment no information (no code) [facility] (Unsp spec) [facility] [Interp] [facility] (92591) Trisomy 18 risk <1 IN 5000 (no code) [facility] Qn (fetus) [facility] (87695) Trisomy 21 risk 1 IN 522 (no code) [facility] Based on [facility] maternal age Qn [facility] (fetus) (31872) Trisomy 21 risk 1 IN 1499 (no code) [facility] Qn (fetus) [facility] (18999) No panel information on 2019-03-31 ABO group Nom O (no code) [facility]alt (Bld) [facility] (86495) Basophils (Bld) 0.036 10*3/uL (N) 0 - 0.3 10*3/uL [facility] Ouner [#/Vol] [facility] (06590) Basophils/100 0.4 % (N) 0.5 - 1 % [facility] WBC (Bld) [facility] (22558) Blood group no information (no code) [facility] antibody screen [facility] (31459) C. trachomatis NOT DETECTED (N) [facility] rRNA ADRIAN+probe [facility] (Unsp spec) [facility] (15119) Clinical (N) [facility] information [facility] (41930) COMMENT no information (no code) [facility] (68793) COMMENT no information (no code) [facility] (39929) Melt House Supervisor Cyto no information (N) [facility] stain Nom [facility] (Cvx/Vag) [ID] [facility] (44653) Date of previous no information (N) [facility] biopsy [facility] (82545) Date of previous no information (N) [facility] PAP smear [facility] (35697) Eosinophils 0.117 10*3/uL (N) 0.05 - 0.5 [facility] (Bld) [#/Vol] 10*3/uL [facility] (05894) Eosinophils/100 1.3 % (N) 1 - 4 % [facility] WBC (Bld) [facility] (01878) Erythrocyte 12.7 % (N) 11.6 - 14.6 % [facility] ealth distribution [facility] (RBC) [facility] [Ratio] (27810) HBV surface Ag no information (no code) [facility] IA Ql [facility] (47663) HBV surface Ag no information (no code) [facility] Neut test [facility] (84909) Hematocrit (Bld) 39.2 % (N) 36.1 - 50.3 % [facility]] [facility] (39406) Hemoglobin (Bld) 13.6 g/dL (N) 12.1 - 17.2 g/dL [facility] [employer] [facility] [Mass/Vol] [facility] (17342) HIV 1+2 Ab+HIV1 NON-REACTIVE (no code) [facility] p24 Ag IA Ql [facility] (13433) Last menstrual no information (N) [facility] period start [facility] (95056) Lymphocytes 1.926 10*3/uL (N) 0.9 - 2.9 [facility] (Bld[facility] [#/Vol] 10*3/uL [facility] (14476) Lymphocytes/100 21.4 % (N) 20 - 40 % [facility] WBC (Bld) [facility] (57465) MCH (RBC) 30.8 pg (N) 27 - 31 pg [facility] [Entitic mass] [facility] (42317) MCHC (RBC) 34.7 g/dL (N) 32 - 36 g/dL [facility] He alth [Mass/Vol] [facility] (54196) MCV (RBC) 88.9 fL (N) 80 - 100 fL [facility] Hea lth [Entitic vol] [facility] (08846) Microorganism no information (N) [facility] identified [facility] stain Nom [facility] (Cvx/Vag) (28270) Microscopic no information (N) [facility] observation Cy[facility] stain Nom (Cvx) [facility] (06794) Monocytes (Bld) 0.36 10*3/uL (N) 0.3 - 0.9 [facility] [#/Vol] 10*3/uL [facility] (89751) Monocytes/100 4.0 % (N) 2 - 8 % [facility] WBC (Bld) [facility] (85020) N. gonorrhoeae NOT DETECTED (N) [facility] rRNA ADRIAN+probe [facility] (Unsp spec) [facility] (75393) Neutrophils 6.561 10*3/uL (N) 1.7 - 7 10*3/uL [facility] Health (Bld) [#/Vol] [facility] (51087) Neutrophils/100 72.9 % (N) 40 - 60 % [facility] WBC (Bld) [facility] (14797) Platelet mean 12.0 fL (N) 7.2 - 11.7 fL [facility] volume (Bld) [facility] [Entitic vol] [facility] (08388) Platelets (Bld) 171 10*3/uL (N) 150 - 450 [facility] [#/Vol] 10*3/uL [facility] (63229) RBC (Bld) 4.41 10*6/uL (N) 4.2 - 6.1 [facility] [#/Vol] 10*6/uL [facility] (81548) Reagin Ab RPR Ql NON-REACTIVE (no code) [facility] lth (S) [facility] (10518) Rh Nom (Bld) no information (no code) [facility] (94734) Rubella virus 0 [IU]/mL (no code) 0 - 1.0 [IU]/mL [facility] IgG Qn (S) [facility] (93292) Specimen source no information (N) [facility] Cyto stain Nom [facility] (Cvx/Vag) [facility] (66010) Statement of no information (N) [facility] adequacy Cyto [facility] stain (Cvx/Vag) [facility] [Interp] (81325) WBC (Bld) 9.0 10*3/uL (N) 3.5 - 10.5 [facility] [#/Vol] 10*3/uL [facility] (48303) urine urobilinogen measurement by automated test strip (mass/volume) on 2019-01-07 Urobilinogen (U) 0.2 (no code) [facility] [Mass/Vol] [facility] (98852) urine trichomonas species detection by light microscopy on 2019-01-07 Trichomonas sp MODERATE (*) [facility] LM Ql (U) [facility] (53928) urine total bilirubin detection by test strip on 2019-01-07 Bilirubin Ql (U) no information (no code) [facility] (22622) urine protein assay by test strip, semi-quantitativ e on 2019-01-07 Protein Ql (U) no information (no code) [facility] (81183) urine ph measurement by test strip on 2019-01-07 pH (U) 6.0 [pH] (no code) 4.6 - 8 [pH] [facility] (89873) urine nitrite detection by test strip on 2019-01-07 Nitrite Ql (U) no information (no code) [facility] (59094) urine leukocyte esterase detection by dipstick on 2019-01-07 Leukocyte 2+ (*) [facility] esterase Test [facility] strip Ql (U) (00710) urine ketones detection by automated test strip on 2019-01-07 Ketones Auto no information (no code) [facility] test strip Ql [facility] (U) (04852) urine glucose detection by automated test strip on 2019-01-07 Glucose Auto no information (no code) [facility] test strip Ql [facility] (U) (08181) urine color determination on 2019-01-07 Color (U) YELLOW (no code) [facility] (45550) urine clarity determination on 2019-01-07 Clarity (U) SL CLOUDY (no code) [facility] (33804) squamous epithelial cells detection in urine sediment by light microscopy on 2019-01-07 Epithelial no information (no code) [facility] cells.squamous [facility] LM Ql (Urine (88353) sed) specific gravity of urine by test strip on 2019-01-07 Specific gravity 1.025 (*) [facility] (U) [Rel [facility] density] (73126) mucus detection in urine sediment by light microscopy on 2019-01-07 Mucus Ql (Urine no information (no code) [facility] sed) [facility] (97525) erythrocytes detection in urine sediment by light microscopy on 2019-01-07 RBC Ql (U) 1+ (*) [facility] (78672) crystals detection in urine sediment by light microscopy on 2019-01-07 Crystals LM Ql NONE (no code) [facility] (Urine sed) [facility] (44988) complete urinalysis with reflex to culture on 2019-01-07 Urinalysis YES (no code) [facility] complete W [facility] Reflex Culture (47849) panel - Urine casts detection in urine sediment by light microscopy on 2019-01-07 Casts LM Ql NONE (no code) [facility] (Urine sed) [facility] (75567) bacteria detection in urine sediment by light microscopy on 2019-01-07 Bacteria LM Ql no information (no code) [facility] (Urine sed) [facility] (30025) automated urine sediment leukocyte count by microscopy (number/high power field) on 2019-01-07 WBC LM.HPF no information (*) [facility] (Urine sed) [facility] [#/Area] (31385) automated urine sediment erythrocyte count by microscopy (number/high power field) on 2019-01-07 RBC LM.HPF NONE (no code) [facility] (Urine sed) [facility] [#/Area] (39437) No panel information on 2017-01-08 Bacteria Note (no code) 01-08-2017 Not Available identified Cx 19:08-0400 (28031) Nom (U) Vital Signs The data below is from unstructured sources Vital Response Date/Time Temperature (Fahrenheit) 98.1 degree s F (97.6 - 99.5) 08/28/2016 8:50am Temperature (Calculated Celsius) 36. 06609 degrees C (36.4 - 37.5) 08/28/2016 8:50am Temperature Source Tympanic 08/28/2016 8:50am Pulse Rate (adult) 73 bpm (60 - 90) 08/28/2016 8:50am Respiratory Rate 18 bpm (12 - 24) 08/28/2016 8:50am O2 Sat by Pulse Oximetry 100 % (88 - 100) 08/28/2016 8:50am Blood Pressure 120/79 mm Hg 08/28/2016 8:50am Blood Pressure Mean 93 mm Hg 08/28/2016 8:50am Pain Numeric Pain Scale 5-Moderate Pain 08/28/2016 12:00pm Pain Intensity 0 2015 11:21am Height (Feet) 5 feet 9:00pm Height (Inches) 0.00 inches 08/25/2016 9:00pm Height (Calculated Centimeters) 152. 468772 cm 08/25/2016 9:00pm Weight (Pounds) 168 pounds 08/25/2016 9:00pm Weight (Ounces) 0.0 oz 1 10/25/2015 9:00pm Weight (Calculated Grams) 81217.52 gm 08/25/2016 9:00pm Weight (Calculated Kilograms) 76.203 519 kilograms 08/25/2016 9:00pm Calculated BMI 32.8 07/31 9:00pm Vital Response Date/Time Temperature (Fahrenheit) 98.4 degree s F (97.6 - 99.5) 09/28/2015 8:00am Temperature (Calculated Celsius) 36. 99047 degrees C (36.4 - 37.5) 09/28/2015 8:00am Temperature Source Tympanic 09/28/2015 8:00am Pulse Rate (adult) 69 bpm (60 - 90) 09/28/2015 8:00am Respiratory Rate 18 bpm (12 - 24) 09/28/2015 8:00am O2 Sat by Pulse Oximetry 98 % (88 - 100) 09/28/2015 8:00am Blood Pressure 118/61 mm Hg 09/28/2015 8:00am Blood Pressure Mean 80 mm Hg 09/28/2015 8:00am Pain Pain Intensity 5 2014 2:48pm Height (Feet) 5 feet 1:00pm Height (Inches) 0.00 inches 09/25/2015 1:00pm Height (Calculated Centimeters) 152. 120043 cm 09/25/2015 1:00pm Weight (Pounds) 174 pounds 09/25/2015 1:00pm Weight (Ounces) 0.4 oz 1 11/26/2014 1:00pm Weight (Calculated Grams) 27478.413 gm 09/25/2015 1:00pm Weight (Calculated Kilograms) 78.936 413 kilograms 09/25/2015 1:00pm Calculated BMI 33.98 1:00pm Vital Response Date/Time Temperature (Fahrenheit) 97.2 degree s F (97.6 - 99.5) 09/21/2015 8:01am Temperature (Calculated Celsius) 36. 57951 degrees C (36.4 - 37.5) 09/21/2015 8:01am Temperature Source Tympanic 09/21/2015 8:01am Pulse Rate (adult) 80 bpm (60 - 90) 09/21/2015 8:01am Respiratory Rate 18 bpm (12 - 24) 09/21/2015 8:01am Blood Pressure 108/56 mm Hg 09/21/2015 8:01am Blood Pressure Mean 73 mm Hg 09/21/2015 8:01am Pain Pain Intensity 0 2014 8:01am Height (Feet) 5 feet 1:17pm Height (Inches) 0.00 inches 09/20/2015 1:17pm Height (Calculated Centimeters) 152. 678402 cm 09/20/2015 1:17pm Weight (Pounds) 169 pounds 09/20/2015 1:17pm Weight (Calculated Grams) 22443.111 gm 09/20/2015 1:17pm Weight (Calculated Kilograms) 76.657 111 kilograms 09/20/2015 1:17pm Calculated BMI 33.00 1:17pm Vital Response Date/Time Pulse Rate (adult) 69 bpm (60 - 90) 07/19/2015 5:52am Blood Pressure 118/66 mm Hg 07/19/2015 5:52am Blood Pressure Mean 83 mm Hg 07/19/2015 5:52am Pain Pain Intensity 5 2014 6:53am Height (Feet) 5 feet 5:45am Height (Inches) 0.00 inches 07/19/2015 5:45am Height (Calculated Centimeters) 152. 536593 cm 07/19/2015 5:45am Weight (Pounds) 165 pounds 07/19/2015 5:45am Weight (Calculated Grams) 44282.742 gm 07/19/2015 5:45am Weight (Calculated Kilograms) 74.842 742 kilograms 07/19/2015 5:45am Calculated BMI 32.22 5:45am Vital Response Date/Time Temperature (Fahrenheit) 98.2 degree s F (97.6 - 99.5) 03/04/2016 12:25am Temperature (Calculated Celsius) 36. 12185 degrees C (36.4 - 37.5) 03/04/2016 12:25am Pulse Rate (adult) 98 bpm (60 - 90) 03/04/2016 12:25am Respiratory Rate 18 bpm (12 - 24) 03/04/2016 12:25am O2 Sat by Pulse Oximetry 99 % (88 - 100) 03/04/2016 12:25am Blood Pressure 140/114 mm Hg 03/04/2016 12:25am Blood Pressure Mean 123 mm Hg 03/04/2016 12:25am Pain Pain Intensity 8 2015 12:25am Height (Feet) 5 feet 02/2016 12:25am Height (Inches) 0 inches 03/04/2016 12:25am Height (Calculated Centimeters) 152. 492380 cm 03/04/2016 12:25am Weight (Pounds) 160 pounds 03/04/2016 12:25am Weight (Calculated Kilograms) 72.574 780 kilograms 03/04/2016 12:25am Height 5 ft 0 in Weight 160 lb Body Mass Index 31.2 kg/m^2 Vital Response Date/Time Temperature (Fahrenheit) 98.9 degree s F (97.6 - 99.5) 05/31/2015 11:50am Temperature (Calculated Celsius) 37. 07076 degrees C (36.4 - 37.5) 05/31/2015 11:50am Temperature Source Tympanic 05/31/2015 11:50am Pulse Rate (adult) 78 bpm (60 - 90) 05/31/2015 11:50am Respiratory Rate 20 bpm (12 - 24) 05/31/2015 11:50am Blood Pressure 119/68 mm Hg 05/31/2015 11:50am Blood Pressure Mean 85 mm Hg 05/31/2015 11:50am Pain Pain Intensity 5 2014 12:06pm Height (Feet) 5 feet 10/2014 12:04pm Height (Inches) 0.00 inches 05/31/2015 12:04pm Height (Calculated Centimeters) 152. 085289 cm 05/31/2015 12:04pm Weight (Pounds) 154 pounds 05/31/2015 12:04pm Weight (Ounces) 0.4 oz 0 05/31/2015 12:04pm Weight (Calculated Grams) 70232.565 gm 05/31/2015 12:04pm Weight (Calculated Kilograms) 69.864 565 kilograms 05/31/2015 12:04pm Calculated BMI 30.07 10/2014 12:04pm Vital Response Date/Time Temperature (Fahrenheit) 98 degrees F (97.6 - 99.5) Temperature (Calculated Celsius) 36. 6696 degrees C (36.4 - 37.5) Temperature Source Temporal Pulse Rate (adult) 90 bpm (60 - 90) Respiratory Rate 18 bpm (12 - 24) O2 Sat by Pulse Oximetry 99 % (88 - 100) Blood Pressure 142/95 mm Hg Pain Pain Intensity 6 Height (Feet) 5 feet Height (Calculated Centimeters) 152. 825682 cm Weight (Pounds) 141 pounds Weight (Calculated Kilograms) 63.956 525 kilograms Height 5 ft 0 in Weight 141 lb Body Mass Index 27.5 kg/m^2 Vital Response Date/Time Temperature (Fahrenheit) 98.5 degree s F (97.6 - 99.5) 01/07/2019 10:41pm Temperature (Calculated Celsius) 36. 42931 degrees C (36.4 - 37.5) 01/07/2019 10:41pm Temperature Source Temporal 01/07/2019 10:41pm Pulse Rate (adult) 74 bpm (60 - 90) 01/07/2019 10:41pm Respiratory Rate 16 bpm (12 - 24) 01/07/2019 10:41pm O2 Sat by Pulse Oximetry 99 % (88 - 100) 01/07/2019 10:41pm Blood Pressure 126/64 mm Hg 01/07/2019 10:41pm Blood Pressure Mean 84 mm Hg (65 - 110) 01/07/2019 10:41pm Pain Numeric Pain Scale 10-Worst Possible Pain 01/07/2019 10:41pm Height (Feet) 5 feet 07/2019 10:41pm Height (Calculated Centimeters) 152. 054454 cm 01/07/2019 10:41pm Height Method Stated 07/2019 10:41pm Weight (Pounds) 179 pounds 01/07/2019 10:41pm Weight (Calculated Grams) 24121.04 gm 01/07/2019 10:41pm Weight (Calculated Kilograms) 81.193 035 kilograms 01/07/2019 10:41pm Weight Method Stated 07/2019 10:41pm Capillary Refill Capillary Refill Less Than 3 Seconds 01/07/2019 10:41pm Height 5 ft 0 in 019 10:41pm Weight 179 lb 01/07/2019 10:41pm Body Mass Index 35.0 kg/m^2 01/07/2019 10:41pm Vital Reading Result Col lection Date/Time Vital Reading Result Col lection Date/Time Interventions No Information Plan of Treatment Normalized Care Care Detail Care Activity Date Care Provider F acility Activity Patient Education VAGINAL DELIVERY no information RACHAEL JIMENEZ NDER [address] DISCHARGE [id number] [facility] ([id number]) Patient referral no information no information RACHAEL HURTADODE R [address] [id number] [facility] ([id number]) Goals Patient Goal Desired Goal no information no information Social History Normalized Code Original Code Date Value Tobacco smoking status Tobacco smoking status no information Smokes tobacco daily IAIS IAIS (finding) no information no information 03-04-2016 Denies Use no information no information 03-04-2016 N - DENIES no information no information 07-30-2013 No no information no information 07-30-2013 Denies no information no information 09-06-2019 Current Everyda y Smoker no information no information 09-06-2019 Cigarettes Sex Assigned At Sex Assigned At no information F emale Functional Status Status Assessment Result Care Provider Facility Functional status [place] Opioid-induced RACHAEL GELLENDER [phone] Yvonne Sedation Scale (POSS) [facility] (54929) Sleep, easy to arouse Mental Status Status Assessment Result Care Provider Facility Cognitive function [place] Opioid-induced RACHAEL GELLENDER [phone] Yvonne Sedation Scale (POSS) [facility] (27866) Sleep, easy to arouse Encounters Encounter Normalized Encounter Encounter Diagnosis Care Provi molly Organization Date Type 01-07-2019 Emergency department no information [facility] Work no organization name - patient visit (no phone ) 01-08-2019 01-07-2019 Emergency department no information no name (no [place]ne ne) no organization name - patient visit (no phone) 01-07-2019 01-06-2018 Emergency department no information no name (no [facility]) no organization name - patient visit (no phone) 01-06-2018 01-06-2018 Emergency department no information no name (no [place]) no organization name - patient visit (no phone) 01-06-2018 03-03-2016 Emergency department no information no name (no [place]) no organization name - patient visit (no phone) 03-03-2016 09-06-2019 Evaluation and no information (no phone) [facility] (no phone) 09-07-2019 inpatient 09-06-2019 Evaluation and no information no name (no phone) n o organization name - management of (no phone) 09-07-2019 inpatient 08-25-2016 Evaluation and no information no name (no phone) n o organization name - management of (no phone) 08-28-2016 inpatient 03-03-2018 Patient encounter no information no name (no phone) no organization name (no phone) 02-04-2018 Patient encounter no information no name (no phone) no organization name (no phone) 01-06-2018 Patient encounter no information no name (no phone) no organization name (no phone) 07-17-2016 Patient encounter no information no name (no phone) no organization name (no phone) 07-12-2016 Patient encounter no information no name (no phone) no organization name (no phone) 05-07-2016 Patient encounter no information no name (no phone) no organization name (no phone) 08-18-2015 Patient encounter no information no name (no phone) no organization name (no phone) 07-30-2013 Patient encounter no information no name (no phone) no organization name - (no phone) 07-30-2013 04-12-2013 Patient encounter no information no name (no phone) no organization name (no phone) 02-28-2013 Patient encounter no information no name (no phone) no organization name - (no phone) 02-28-2013 02-01-2013 Patient encounter no information no name (no phone) no organization name - (no phone) 04-11-2013 09-14-2007 Patient encounter no information no name (no phone) no organization name - (no phone) 09-14-2007 12-11-2019 Patient encounter no information NONE PCP (no phone ) [facility] (no phone) 10-19-2019 Patient encounter no information no name (no phone) no organization name procedure (no phone) 09-06-2019 Patient encounter no information no name (no phone) no organization name - procedure (no phone) 09-07-2019 08-19-2019 Patient encounter no information no name (no phone) no organization name procedure (no phone) 08-10-2019 Patient encounter no information no name (no phone) no organization name procedure (no phone) 06-30-2019 Patient encounter no information no name (no phone) no organization name procedure (no phone) 06-17-2019 Patient encounter no information no name (no phone) no organization name procedure (no phone) 06-15-2019 Patient encounter no information no name (no phone) no organization name procedure (no phone) 05-18-2019 Patient encounter no information no name (no phone) no organization name procedure (no phone) 04-28-2019 Patient encounter no information no name (no phone) no organization name procedure (no phone) 04-28-2019 Patient encounter no information no name (no phone) no organization name procedure (no phone) 03-31-2019 Patient encounter no information no name (no phone) no organization name procedure (no phone) 07-17-2016 Patient encounter no information no name (no phone) no organization name procedure (no phone) 07-12-2016 Patient encounter no information no name (no phone) no organization name procedure (no phone) 05-07-2016 Patient encounter no information no name (no phone) no organization name procedure (no phone) 09-20-2015 Patient encounter no information no name (no phone) no organization name - procedure (no phone) 09-21-2015 08-18-2015 Patient encounter no information no name (no phone) no organization name procedure (no phone) 07-31-2015 Patient encounter no information no name (no phone) no organization name - procedure (no phone) 07-31-2015 07-19-2015 Patient encounter no information no name (no phone) no organization name - procedure (no phone) 07-19-2015 05-31-2015 Patient encounter no information no name (no phone) no organization name - procedure (no phone) 05-31-2015 Patient encounter no information no name (no phone) no organ ization name procedure (no phone) Medical Equipment The data below is from unstructured sourcesNo Medical Equipment Information available Payers Normalized Payer Value Private Health Insurance no information ([id number]) Evaluation note Note Type Note Facility Evaluation No Assessments Information Available A scension note [facility] ([id number]) Summary Purpose eClinicalWorks SubmissioneClinicalWorks SubmissioneClinicalWorks SubmissioneClinicalWorks SubmissioneClinicalWorks SubmissioneClinicalWorks SubmissioneClinicalWorks SubmissioneClinicalWorks Submission Advance Directives Directive Response Recor ded Date/Time Advance Directives No 9:00pm Health Care Power of Veneer Department Manager No 08/25/16 9:00pm Organ Donor No 08/25/16 9:00pm Resuscitation Status Full Code 08/25/16 9:00pm Directive Response Recor ded Date/Time Advance Directives No 1:00pm Health Care Power of Veneer Department Manager No 09/25/15 1:00pm Organ Donor No 09/25/15 1:00pm Resuscitation Status Full Code 09/25/15 1:00pm Directive Response Recor ded Date/Time Advance Directives No 1:15pm Health Care Power of Veneer Department Manager No 09/20/15 1:15pm Organ Donor No 09/20/15 1:15pm Resuscitation Status Full Code 09/20/15 1:15pm Directive Response Recor ded Date/Time Advance Directives No 6:50am Health Care Power of Veneer Department Manager No 07/19/15 6:50am Organ Donor No 07/19/15 6:50am Directive Response Recor ded Date/Time Advance Directives No 12:25am Health Care Power of Veneer Department Manager No 03/04/16 12:25am Organ Donor No 03/04/16 12:25am Resuscitation Status Full Code 03/04/16 12:25am Directive Response Recor ded Date/Time Advance Directives No 12:11pm Health Care Power of Veneer Department Manager No 05/31/15 12:11pm Organ Donor No 05/31/15 12:11pm Resuscitation Status Full Code 05/31/15 12:11pm Directive Response Recor ded Date Advance Directives N 11/11 10:45am Organ Donor N 02/28/13 1 0:45am Directive Response Recor ded Date/Time Advance Directives No 11:36am Health Care Power of Veneer Department Manager No 03/06/15 11:36am Organ Donor No 03/06/15 11:36am Resuscitation Status Full Code 03/06/15 11:36am Directive Response Recor ded Date Advance Directives N 02/08 8:25am Health Care Power of Veneer Department Manager N 03/03/13 8:25am Organ Donor N 03/03/13 8 :25am Directive Response Recor ded Date/Time Advance Directives No 6:50am Health Care Power of Veneer Department Manager No 07/19/15 6:50am Organ Donor No 07/19/15 6:50am Resuscitation Status Full Code 07/19/15 6:50am Directive Response Recor ded Date/Time Advance Directives No 10:41pm Health Care Power of Veneer Department Manager No 01/06/18 8:37pm Organ Donor No 01/06/18 8:37pm Resuscitation Status Full Code 01/07/19 10:41pm Advance Directive Response Recorded Date/Time Advance Directives No [place] 2018 7:15am Health Care Power of Veneer Department Manager No September 06, 2019 7:15am Organ Donor Yes September 06, 2019 7:15am Resuscitation Status Full Code September 06, 2019 7:15am Discharge Instructions Patient Instructions Physician Instructions Instructions Continue vitamin one a day for 1 month. May use ibuprofen 200mg 2 or 3 every 6hrs for cramps. Activity: Activity as Tolerated Driving Instructions: You May Drive Nothing Inside Vagina: No [place] (for 6 weeks.) Discharge Diet: Regular Diet Return to The Hospital For: as below Symptoms to Report to Dr.: Bleeding Excessive, Pain Increased, Fever Over 101 Degrees F, Vaginal Discharge Foul For Any Problems or Questions: Contact Your Physician Patient Instructions Physician Instructions New, Converted or Re-Newed RX: RX on Chart Additional Follow Up: Yes Orders/Referrals Dr. Cuevas in 6 weeks Activity: Activity as Tolerated Driving Instructions: No Driving for 1 Week NO SMOKING: NO SMOKING Nothing Inside Vagina: No Douching, No [place], No Tampons Discharge Diet: No Restrictions Symptoms to Report to Dr.: Bleeding Excessive, Pain Increased, Fever Over 101 Degrees F, Vaginal Bleeding Increase, Questions/Concerns For Any Problems or Questions: Contact Your Physician Infection Signs and Symptoms: Temperature Above 101 F Bathing Instructions: Shower Patient Instructions Physician Instructions Patient Instructions: As directed Return to The Hospital For: As directed Discharge Diet: No Restrictions Activity as Tolerated: Yes Return to clinic as scheduled. Return to labor and delivery for any signs symptoms and indications of labor/ labor. Return for excessive bleeding or rupture membranes. Care Plan Patient Instructions:: As directed No hospital discharge instructions.No hospital discharge instructions.No hospital discharge instructions.No hospital discharge instructions.No hospital discharge instructions. Patient Instructions Physician Instructions New, Converted or Re-Newed RX: RX on Chart Plan of Care/Instructions/FU: As instructed Activity as Tolerated: Yes Discharge Diet: No Restrictions Other Inst to Patient return to clinic as scheduled Care Plan Patient Instructions:: As instructed No hospital discharge instruction information available. Chief Complaint and Reason for Visit Chief Complaint Abdominal/GI Problem s Reason for Visit Trichomonal cystiti s and urethritis [id number] Chief Complaint INDUCTION Family History Relationship Condition A ge at Onset Recorded Date/Time G8 Brother FH: stomach ulcer Not Recorded 09/25/2015 5:32pm 19 Father FH: of unknown cause 22 09/25/2015 5:32pm Relationship Condition A ge at Onset Recorded Date/Time 21 FATHER Family history of of unknown cause 22 years September 25, 2015 5:32pm G8 BROTHER Family history of gastric ulcer Unknown September 25, 2015 5:32pm Additional Source Comments This clinical document has been generated using [employer] software that has been certified by the Office of the National Coordinator for Health Information Technology (ONC 15.99.04.3023.Diam.31.00.0.474557) and the National Committee for Photoresist Contact Printer (NCQA, as an eMeasure certified technology). FOR RECORDS PERTAINING TO PATIENTS WHO ARE OR HAVE BEEN ENROLLED IN A CHEMICAL D EPENDENCY/SUBSTANCE ABUSE PROGRAM, SOME INFORMATION MAY BE OMITTED. This clinica l summary was aggregated from multiple sources. Caution should be exercised in using it in the provision of clinical care. This summary normalizes information from multiple sources, and as a consequence, information in this document may ma terially change the coding, format and clinical context of patient data. In ki tion, data may be omitted in some cases. CLINICAL DECISIONS SHOULD BE BASED ON T HE PRIMARY CLINICAL RECORDS. [facility]. provides no warranty or guara ntee of the accuracy or completeness of information in this document.The followi ng information is based on time limited clinical information UNRECOGNIZED CONTENT PROVIDED BELOW FOR UNRECOGNIZED SECTION MEDICAL (GENERAL) HISTORY Type Description Date Medical History History of Rhogam Injectio n Surgical History D&C 201 1 Hospitalization History Childbirth x 5 UNRECOGNIZED CONTENT PROVIDED BELOW FOR UNRECOGNIZED SECTION REASON FOR VISIT [id number]
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
[2020-01-01] MEDS ORDERED: IBUP-1780 PO (18:42)
[2020-01-01] MEDS ORDERED: CYCL10TA9 PO (18:42)
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
[2020-01-01 18:43] VITALS: BP 154/99
== END 2020-01-01 18:45 | disposition home or self-care (01) ==
LOC: EDUNIT# 18:13 → ER FS 18:15
DX: S29.012A Strain of muscle and tendon of back wall of thorax, initial encounter (principal); S46.912A Strain of unspecified muscle, fascia and tendon at shoulder and upper arm level, left arm, initial encounter; F17.210 Nicotine dependence, cigarettes, uncomplicated; V49.40XA Driver injured in collision with unspecified motor vehicles in traffic accident, initial encounter
CPT/HCPCS: 99282

== ENCOUNTER 2021-01-27 21:49 | Emergency (ER) | payer OTHER ==
[~2021-01-27] VITALS: Ht 157 cm; Wt 90.7 kg
[~2021-01-27 21:49] MED LIST changes: +CYCL10TA9 PO
[2021-01-27] MEDS ORDERED: HYDROcodone/APAP 5 MG/325 MG (LORTAB) TAB PO STA (22:01)
[2021-01-27] MEDS ORDERED: IBUPROFEN 800 MG (MOTRIN) TAB PO STA (22:01)
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
[2021-01-27 22:11] LABS: CLARITY,URINE CLEAR; COLOR,URINE PINK
[2021-01-27 22:12] LABS: BACTERIA,URINE MODERATE /HPF; BILIRUBIN,URINE NEGATIVE (NEGATIVE); GLUCOSE, URINE (UA) NEGATIVE (NEGATIVE); KETONES,URINE NEGATIVE (NEGATIVE); LEUKOCYTE ESTERASE ,URINE NEGATIVE (NEGATIVE); NITRITE,URINE NEGATIVE (NEGATIVE); PROTEIN,URINE 1+ (NEGATIVE); RBC,URINE 25-50 /HPF
[2021-01-28] MEDS ORDERED: ACHD5005 PO (00:03)
[2021-01-28] MEDS ORDERED: IBUP-1780 PO (00:03)
[2021-01-28] MEDS ORDERED: CYCL10TA9 PO (00:03)
[2021-01-28 00:58] VITALS: BP 145/101
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
[2021-01-29] MEDS ORDERED: CYCL10TA9 PO (14:40)
[2021-01-29] MEDS ORDERED: NAPR-1071 PO (14:40)
== END 2021-01-28 00:58 | disposition home or self-care (01) ==
LOC: EDUNIT# 21:49 → ER FS 21:52
DX: S06.0X9A Concussion with loss of consciousness of unspecified duration, initial encounter (principal); S00.83XA Contusion of other part of head, initial encounter; M25.562 Pain in left knee; M25.561 Pain in right knee; N83.201 Unspecified ovarian cyst, right side; E66.9 Obesity, unspecified; R40.2410 Glasgow coma scale score 13-15, unspecified time; Z68.33 Body mass index [BMI] 33.0-33.9, adult; V49.50XA Passenger injured in collision with unspecified motor vehicles in traffic accident, initial encounter
CPT/HCPCS: 70450; 70486; 71250; 72125; 74176; 81000; 84703; 87088

== ENCOUNTER 2021-01-29 13:48 | Emergency (ER) | payer OTHER ==
[~2021-01-29] VITALS: Ht 176.8 cm; Wt 83.2 kg
[~2021-01-29 13:48] MED LIST changes: +ACHD5005 PO
[2021-01-29] MEDS ORDERED: KETOROLAC 60 MG/2 ML VIAL IM ONE (14:30)
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
[2021-01-29] MEDS ORDERED: CYCL10TA9 PO (14:40)
[2021-01-29] MEDS ORDERED: NAPR-1071 PO (14:40)
[2021-01-29 15:10] VITALS: BP 136/98
== END 2021-01-29 15:10 | disposition home or self-care (01) ==
LOC: EDUNIT# 13:48 → ER 13:50
DX: M62.838 Other muscle spasm (principal); F17.210 Nicotine dependence, cigarettes, uncomplicated
CPT/HCPCS: 99284

== ENCOUNTER 2023-02-19 12:48 | Emergency (ER) | payer SELFPAY ==
[~2023-02-19] VITALS: Ht 152.4 cm; Wt 187.0 kg
[~2023-02-19 12:48] MED LIST changes: +ACET-11 PO; -ACET1TAB43 PO; +CYCL10TA25 PO; -CYCL10TA9 PO; +NAPR-1071 PO
--- NOTE | 2023-02-19 13:12 | ED Abdominal Pain ---
General Chief Complaint: Abdominal/GI Problems Stated Complaint: ABD PAIN History of Present Illness Date Seen by Provider: February 19, 2023 Time Seen by Provider: 13:11 Initial Comments 37-year-old female with no significant PMH other than tubal ligation and D&C in the past, is here with complaints of left lower quadrant pain which began a few hours ago. Patient states that it is intermittent and when it comes it is 9/10 in intensity. Patient had her LMP on 02/03/2023. Denies fever and chills, nausea and vomiting, diarrhea, constipation, dysuria, hematuria, vaginal discharge or bleeding. Allergies and Home Medications Allergies Coded Allergies: No Known Drug Allergies (Verified , 01/07/19) Patient Home Medication List Home Medication List Reviewed: Yes Acetaminophen (Acetaminophen) 500 Mg Tablet, 1,000 MG PO Q6HR Prescribed by: TRUNG DOMÍNGUEZ on 09/07/19 0552 Cyclobenzaprine HCl (Cyclobenzaprine HCl) 10 Mg Tablet, 10 MG PO Q8H PRN for SPASMS Prescribed by: MARLEY JENSEN on 01/28/21 0003 Cyclobenzaprine HCl (Cyclobenzaprine HCl) 10 Mg Tablet, 10 MG PO Q8H PRN for SPASMS Prescribed by: CELINA CARRASCO on 01/29/21 1440 Docusate Sodium (Docusate Sodium) 100 Mg Capsule, 100 MG PO BID Prescribed by: TRUNG DOMÍNGUEZ on 09/07/19 0552 Hydrocodone/Acetaminophen (Hydrocodone-Acetamin 5-325 mg) 1 Each Tablet, 1 TAB PO Q6H PRN for PAIN-SEVERE (8-10) Prescribed by: MARLEY JENSEN on 01/28/21 0004 Ibuprofen (Ibuprofen) 800 Mg Tablet, 800 MG PO Q8HR Prescribed by: TRUNG DOMÍNGUEZ on 09/07/19 0552 Ibuprofen (Ibuprofen) 800 Mg Tablet, 800 MG PO Q8H PRN for PAIN Prescribed by: MARLEY JENSEN on 01/28/21 0003 Naproxen (Naprosyn) 500 Mg Tablet, 500 MG PO BID PRN for PAIN-BREAKTHROUGH Prescribed by: CELINA CARRASCO on 01/29/21 1440 Oxycodone Hcl (Oxycodone IR) 5 Mg Tab, 5 MG PO Q6H PRN for PAIN-SEVERE (8-10) Prescribed by: TRUNG DOMÍNGUEZ on 09/07/19 0552 Review of Systems Review of Systems Constitutional: no symptoms reported EENTM: No Symptoms Reported Respiratory: No Symptoms Reported Cardiovascular: No Symptoms Reported Gastrointestinal: Abdominal Pain Genitourinary: No Symptoms Reported Musculoskeletal: no symptoms reported Skin: no symptoms reported Psychiatric/Neurological: No Symptoms Reported Endocrine: No Symptoms Reported Hematologic/Lymphatic: No Symptoms Reported Past Rxthwys-Gdpxrr-Qrcqnp Hx Immunizations Up To Date Tetanus Booster (TDap): Unknown PED Vaccines UTD: No Seasonal Allergies Seasonal Allergies: No Past Medical History Surgeries: Yes Section Respiratory: No Cardiac: No Neurological: No Reproductive Disorders: No Female Reproductive Disorders: Denies Sexually Transmitted Disease: No HIV/AIDS: No Genitourinary: No Gastrointestinal: No Musculoskeletal: No Endocrine: No HEENT: No Cancer: No Psychosocial: No Integumentary: No Eczema Blood Disorders: No Adverse Reaction/Blood Tranf: No Family Medical History Diabetes mellitus 19 MOTHER (will not take medicine) FH: of unknown cause 19 FATHER, Onset:22 FH: stomach ulcer G8 BROTHER Physical Exam Vital Signs Vital Signs - First Documented 02/19/23 12:55 Temp 36.6 Pulse 79 Resp 18 B/P (MAP) 106/63 (77) O2 Delivery Room Air Capillary Refill : Height/Weight/BMI Height: 5'0" Weight: 179lbs. 0.0oz. [id number]; 28.00 BMI Method:Stated General Appearance: WD/WN, mild distress HEENT: PERRL/EOMI Neck: full range of motion Respiratory: chest non-tender, lungs clear, normal breath sounds Cardiovascular: regular rate, rhythm Gastrointestinal: normal bowel sounds, soft, tenderness (In the left lower quadrant) Extremities: normal range of motion Back: no CVA tenderness Neurologic/Psychiatric: alert, normal mood/affect, oriented x 3 Skin: normal color Focused Exam Lactate Level 02/19/23 13:10: Lactic Acid Level 1.18 Lactic Acid Level Laboratory Tests Test 02/19/23 13:10 Lactic Acid Level 1.18 MMOL/L (0.50-2.00) Progress/Results/Core Measures Results/Orders Lab Results Laboratory Tests Test 02/19/23 12:57 02/19/23 13:05 02/19/23 13:10 Range/Units Urine Color YELLOW Urine Clarity SL CLOUDY Urine pH 6.0 5-9 Urine Specific Perkins >=1.030 1.016-1.022 Urine Protein NEGATIVE NEGATIVE Urine Glucose (UA) NEGATIVE NEGATIVE Urine Ketones NEGATIVE NEGATIVE Urine Nitrite NEGATIVE NEGATIVE Urine Bilirubin NEGATIVE NEGATIVE Urine Urobilinogen 0.2 < = 1.0 MG/DL Urine Leukocyte Esterase 1+ H NEGATIVE Urine RBC (Auto) TRACE-I H NEGATIVE Urine RBC 0-2 /HPF Urine WBC 5-10 H /HPF Urine Squamous Epithelial Cells 10-25 H /HPF Urine Crystals NONE /LPF Urine Bacteria FEW H /HPF Urine Casts NONE /LPF Urine Mucus SMALL H /LPF Urine Trichomonas FEW H /HPF Urine Culture Indicated YES Urine Opiates Screen NEGATIVE NEGATIVE Urine Oxycodone Screen NEGATIVE NEGATIVE Urine Methadone Screen NEGATIVE NEGATIVE Urine Propoxyphene Screen NEGATIVE NEGATIVE Urine Barbiturates Screen NEGATIVE NEGATIVE Ur Tricyclic Antidepressants Screen NEGATIVE NEGATIVE Urine Phencyclidine Screen NEGATIVE NEGATIVE Urine Amphetamines Screen NEGATIVE NEGATIVE Urine Methamphetamines Screen NEGATIVE NEGATIVE Urine Benzodiazepines Screen NEGATIVE NEGATIVE Urine Cocaine Screen NEGATIVE NEGATIVE Urine Cannabinoids Screen POSITIVE H NEGATIVE White Blood Count 7.2 4.3-11.0 10^3/uL Red Blood Count 4.88 3.80-5.11 10^6/uL Hemoglobin 15.2 11.5-16.0 g/dL Hematocrit 44 35-52 % Mean Corpuscular Volume 90 80-99 fL Mean Corpuscular Hemoglobin 31 25-34 pg Mean Corpuscular Hemoglobin Concent 35 32-36 g/dL Red Cell Distribution Width 13.2 10.0-14.5 % Platelet Count 185 130-400 10^3/uL Mean Platelet Volume 11.5 9.0-12.2 fL Immature Granulocyte % (Auto) 0 % Neutrophils (%) (Auto) 62 42-75 % Lymphocytes (%) (Auto) 32 12-44 % Monocytes (%) (Auto) 5 0-12 % Eosinophils (%) (Auto) 1 0-10 % Basophils (%) (Auto) 1 0-10 % Neutrophils # (Auto) 4.4 1.8-7.8 10^3/uL Lymphocytes # (Auto) 2.3 1.0-4.0 10^3/uL Monocytes # (Auto) 0.4 0.0-1.0 10^3/uL Eosinophils # (Auto) 0.1 0.0-0.3 10^3/uL Basophils # (Auto) 0.0 0.0-0.1 10^3/uL Immature Granulocyte # (Auto) 0.0 0.0-0.1 10^3/uL Sodium Level 142 135-145 MMOL/L Potassium Level 3.6 3.6-5.0 MMOL/L Chloride Level 109 H 98-107 MMOL/L Carbon Dioxide Level 21 21-32 MMOL/L Anion Gap 12 5-14 MMOL/L Blood Urea Nitrogen 8 7-18 MG/DL Creatinine 0.71 0.60-1.30 MG/DL Estimat Glomerular Filtration Rate 114 BUN/Creatinine Ratio 11 Glucose Level 123 H 70-105 MG/DL Calcium Level 9.7 8.5-10.1 MG/DL Corrected Calcium 9.6 8.5-10.1 MG/DL Magnesium Level 2.0 1.6-2.4 MG/DL Total Bilirubin 0.2 0.1-1.0 MG/DL Aspartate Amino Transf (AST/SGOT) 15 5-34 U/L Alanine Aminotransferase (ALT/SGPT) 11 0-55 U/L Alkaline Phosphatase 76 40-136 U/L Total Protein 7.6 6.4-8.2 GM/DL Albumin 4.1 3.2-4.5 GM/DL Lipase 23 8-78 U/L Lactic Acid Level 1.18 0.50-2.00 MMOL/L My Orders Orders - JEFF RACHEL MD Cbc With Automated Diff (02/19/23 13:12) Comprehensive Metabolic Panel (02/19/23 13:12) Drug Screen Stat (Urine) (02/19/23 13:12) Lactic Acid Analyzer (02/19/23 13:12) Lipase (02/19/23 13:12) Magnesium (02/19/23 13:12) Ua Culture If Indicated (02/19/23 13:12) Urine Culture (02/19/23 12:57) Ct Abdomen/Pelvis W (02/19/23 13:40) Ketorolac Injection (Toradol Injection) (02/19/23 13:45) Ed Iv/Invasive Line Start (02/19/23 13:40) Ns Iv 1000 Ml (Sodium Chloride 0.9%) (02/19/23 13:45) Iohexol Injection (Omnipaque 350 Mg/Ml 1 (02/19/23 14:00) Received Contrast (Hold Metformin- Contr (02/19/23 14:00) Ns (Ivpb) (Sodium Chloride 0.9% Ivpb Bag (02/19/23 14:00) Chlamydia Trachomatis Urine (02/19/23 14:41) Neis Alfredo Dna Urine Test (02/19/23 14:41) Rpr With Fta-Abs Reflex If Pos (02/19/23 14:42) Medications Given in ED Current Medications Medications Dose Ordered Sig/Tara Route Start Time Stop Time Status Last Admin Dose Admin Iohexol 100 ml ONCE ONCE IV 02/19/23 14:00 02/19/23 14:01 DC 02/19/23 13:54 80 ML Ketorolac Tromethamine 15 mg ONCE ONCE IVP 02/19/23 13:45 02/19/23 13:46 DC 02/19/23 13:46 15 MG Sodium Chloride 100 ml ONCE ONCE IV 02/19/23 14:00 02/19/23 14:01 DC 02/19/23 13:54 100 ML Vital Signs/I&O 02/19/23 12:55 Temp 36.6 Pulse 79 Resp 18 B/P (MAP) 106/63 (77) O2 Delivery Room Air Progress Progress Note : Progress Note 1. LEFT OVARIAN CYST, LEFT HYDROSALPINX: - CT ABD & PELVIS: Cyst and possible hydrosalpinx in the left adnexal region with mild pelvic free fluid. - CBC/CMP: normal - Follow up with [facility] within the next 3 to 5 days for ultrasound and follow up -The patient was seen in the ED, and treated appropriately to presentation at a specific point in time. Patient is informed that there is a possibility that disease and illness can evolve and change in acuity rapidly or slowly after patient is discharged from the ER. Precautionary advice given to the patient for immediate return to ER if symptoms worsen or do not resolve, and to seek emergency care sooner rather than later. Pt also advised on the importance of PCP follow up and compliance with management and follow up plan with PCP and/or specialist, as this is part of the management plan. Pt verbally expressed understanding. 2. TRICHOMONIASIS: - UA is positive for trichomonas - Prescription given for Flagyl 500mg bid for 7 days - Follow up with [facility] as above -Advised to abstain from intercourse until completing 7 days of treatment and asymptomatic. Patient's partner will also need treatment. 3. MARIJUANA ABUSE: - UDS is positive for marijuana - Advised to stop using marijuana as this can trigger abdominal pain and nausea and vomiting. Diagnostic Imaging Diagonstic Imaging: CT Plain Films/CT/US/NM/MRI: abdomen, pelvis Comments [facility], [place] NAME: LEAH MENSAH REC#: [id number] PT STATUS: REG ER : 1985 PHYSICIAN: JEFF RACHEL MD ADMIT DATE: 02/19/23/ER FS Draft Date of Exam:02/19/23 CT ABDOMEN/PELVIS W PROCEDURE: CT abdomen and pelvis with contrast. TECHNIQUE: Multiple contiguous axial images were obtained through the abdomen and pelvis after administration of intravenous contrast. Auto Exposure Controls were utilized during the CT exam to meet ALARA standards for radiation dose reduction. All CT scans use one or more of the following dose optimizing techniques: automated exposure control, MA and/or KvP adjustment based on patient size and exam type or iterative reconstruction. INDICATION: Generalized abdominal pain. COMPARISON: 01/27/2021. FINDINGS: No focal hepatic, gallbladder, pancreatic, adrenal gland, or splenic lesion is identified. The kidneys are also unremarkable. There is no free fluid in the abdomen. No appendiceal inflammation is identified. There is a somewhat irregular thick-walled 1.7 cm cyst in the left ovary and possible additional fluid present within the left ovary or fallopian tube. There is mild pelvic free fluid. The unopacified urinary bladder is unremarkable. IMPRESSION: Cyst and possible hydrosalpinx in the left adnexal region with mild pelvic free fluid. Clinical correlation is recommended. Consideration could be given to ultrasound for further characterization. Otherwise, no acute abnormality is seen within the abdomen or pelvis. Dictated on workstation # [id number] Dict: 02/19/23 1420 Trans: 02/19/23 1420 [id number] Interpreted by: GEORGE CONNELLY MD Electronically signed by: Departure Impression Primary Impression: Left ovarian cyst Additional Impressions: Hydrosalpinx Trichomonas infection Marijuana abuse Disposition: 01 HOME, SELF-CARE Condition: Stable Departure-Patient Inst. Referrals: [facility] [place] ([place]/Family) Primary Care Physician Patient Instructions: Trichomoniasis, Cannabis hyperemesis syndrome, Cannabis use disorder, Sexually-Transmitted Diseases, STD Prevention, Ovarian Cyst ED Add. Discharge Instructions: - Follow up with [facility] within the next 3 to 5 days for ultrasound and follow up - Prescription given for Flagyl 500mg bid for 7 days -Advised to abstain from intercourse until completing 7 days of treatment and asymptomatic. Patient's partner will also need treatment. - Advised to stop using marijuana as this can trigger abdominal pain and nausea and vomiting. All discharge instructions reviewed with patient and/or family. Voiced unde rstanding. Scripts Metronidazole (Metronidazole) 500 Mg Tablet 500 MG PO BID for 7 Days, #14 TAB Prov: JEFF RACHEL MD 02/19/23 JEFF RACHEL MD February 19, 2023 13:12
[2023-02-19 13:19] LABS: BILIRUBIN,URINE NEGATIVE (NEGATIVE); CLARITY,URINE SL CLOUDY; COLOR,URINE YELLOW; GLUCOSE, URINE (UA) NEGATIVE (NEGATIVE); KETONES,URINE NEGATIVE (NEGATIVE); LEUKOCYTE ESTERASE ,URINE 1+ (NEGATIVE); NITRITE,URINE NEGATIVE (NEGATIVE); PROTEIN,URINE NEGATIVE (NEGATIVE)
[2023-02-19 13:26] LABS: BASOPHILS % (AUTO) 1 % (0-10); EOSINOPHILS # (AUTO) 0.1 10^3/uL (0.0-0.3); EOSINOPHILS % (AUTO) 1 % (0-10); HEMATOCRIT 44 % (35-52); HEMOGLOBIN 15.2 g/dL (11.5-16.0); LYMPHOCYTES # (AUTO) 2.3 10^3/uL (1.0-4.0); LYMPHOCYTES % (AUTO) 32 % (12-44); MEAN CORPUSCULAR HEMOGLOBIN 31 pg (25-34); MEAN CORPUSCULAR HGB CONC 35 g/dL (32-36); MEAN CORPUSCULAR VOLUME 90 fL (80-99); MEAN PLATELET VOLUME 11.5 fL (9.0-12.2); MONOCYTES # (AUTO) 0.4 10^3/uL (0.0-1.0); MONOCYTES % (AUTO) 5 % (0-12); NEUTROPHILS # (AUTO) 4.4 10^3/uL (1.8-7.8); NEUTROPHILS % (AUTO) 62 % (42-75); PLATELET COUNT 185 10^3/uL (130-400); WHITE BLOOD COUNT 7.2 10^3/uL (4.3-11.0)
[2023-02-19 13:35] LABS: RBC,URINE 0-2 /HPF
[2023-02-19 13:36] LABS: BACTERIA,URINE FEW /HPF; TRICHOMONAS,URINE FEW /HPF
[2023-02-19 13:38] LABS: AMPHETAMINE SCREEN, URINE NEGATIVE (NEGATIVE); BARBITURATE SCREEN URINE NEGATIVE (NEGATIVE); BENZODIAZEPINES SCREEN URINE NEGATIVE (NEGATIVE); CANNABINOID SCREEN, URINE POSITIVE (NEGATIVE); COCAINE SCREEN URINE NEGATIVE (NEGATIVE); METHADONE STAT NEGATIVE (NEGATIVE); OPIATE SCREEN URINE NEGATIVE (NEGATIVE); OXYCODONE STAT NEGATIVE (NEGATIVE); PROPOXYPHENE STAT NEGATIVE (NEGATIVE); TRICYCLIC ANTIDEPRESSANTS SCRE NEGATIVE (NEGATIVE)
[2023-02-19 13:40] LABS: CREATININE SERUM 0.71 MG/DL (0.60-1.30); POTASSIUM 3.6 MMOL/L (3.6-5.0)
[2023-02-19 13:41] LABS: ALBUMIN 4.1 GM/DL (3.2-4.5); BILIRUBIN,TOTAL 0.2 MG/DL (0.1-1.0); CALCIUM 9.7 MG/DL (8.5-10.1); TOTAL PROTEIN 7.6 GM/DL (6.4-8.2)
[2023-02-19] MEDS ORDERED: KETOROLAC 15 MG/ML VIAL IVP ONE (13:45)
[2023-02-19] MEDS ORDERED: NS IV 1000 ML 1,000 ML IV SCH (13:45)
[2023-02-19] MEDS ORDERED: NS 100 ML (IVPB) BAG IV ONE (14:00)
[2023-02-19] MEDS ORDERED: IOHEXOL 350 MG/ML 100 ML (OMNIPAQUE 350) VIAL IV ONE (14:00)
[2023-02-19] MEDS ORDERED: HOLD METFORMIN - RECEIVED CONTRAST 20 ML VIAL IV SCH (14:00)
--- NOTE | 2023-02-19 14:26 | Diagnostic Imaging Report ---
PROCEDURE: CT abdomen and pelvis with contrast. TECHNIQUE: Multiple contiguous axial images were obtained through the abdomen and pelvis after administration of intravenous contrast. Auto Exposure Controls were utilized during the CT exam to meet ALARA standards for radiation dose reduction. All CT scans use one or more of the following dose optimizing techniques: automated exposure control, MA and/or KvP adjustment based on patient size and exam type or iterative reconstruction. INDICATION: Generalized abdominal pain. COMPARISON: 01/27/2021. FINDINGS: No focal hepatic, gallbladder, pancreatic, adrenal gland, or splenic lesion is identified. The kidneys are also unremarkable. There is no free fluid in the abdomen. No appendiceal inflammation is identified. There is a somewhat irregular thick-walled 1.7 cm cyst in the left ovary and possible additional fluid present within the left ovary or fallopian tube. There is mild pelvic free fluid. The unopacified urinary bladder is unremarkable. IMPRESSION: Cyst and possible hydrosalpinx in the left adnexal region with mild pelvic free fluid. Clinical correlation is recommended. Consideration could be given to ultrasound for further characterization. Otherwise, no acute abnormality is seen within the abdomen or pelvis. Dictated by: Dictated on workstation # [id number]
[2023-02-19] MEDS ORDERED: METR-145 PO (14:57)
[2023-02-19 15:17] VITALS: BP 137/86
== END 2023-02-19 15:17 | disposition home or self-care (01) ==
LOC: EDUNIT# 12:48 → ER FS 12:52
DX: N83.202 Unspecified ovarian cyst, left side (principal); N70.11 Chronic salpingitis; A59.9 Trichomoniasis, unspecified; F12.10 Cannabis abuse, uncomplicated; Z98.51 Tubal ligation status
CPT/HCPCS: 36415; 74177; 80053; 80306; 81000; 83605; 83690; 83735; 84703; 85025; 86592; 86780; 87088; 87491; 87591; Q9967